=== PATIENT | female | born 1995 | race Caucasian/White ===

== ENCOUNTER 2016-10-30 14:48 | Emergency (ER) | payer OTHER ==
[2016-10-30 15:10] VITALS: BP 132/71
--- NOTE | 2016-10-30 16:10 | UC ---
Upper Extremity HPI - HPI Summary HPI Summary: The patient comes in today for: 1. Right arm pain: Onset: 3 hours ago. Palliative/provocative: Ice and ibuprofen make the pain better. Initially, she had aching with doing circular cleaning movements. Quality: ache Region: Posterior upper arm. Severity:3/10 Time: Constant. Associated symptoms: Event: While at work she was stepping off a 3-step, step ladder and she missed the bottom step. When she fell, she put her right arm behind her and she caught the bed behind her. After this, her arm got "really sore and stiff. " She put ice on the arm and also took ibuprofen (600 mg) at about 2 hours ago. Initially, the pain was a 6/10 and now, it is a 3/10. She complains of internal bruising. She is able to move and stretch the arm. She thinks that she hit the back of her right upper arm against a bed post. Numbness or weakness or heaviness: None. She comes in to be seen because her work told her to do so. She states that she tolerates ibuprofen with no problems. * - History of Current Complaint Chief Complaint: UCUpperExtremity Stated Complaint: ARM INJURY Time Seen by Provider: 10/30/16 16:01 Hx Obtained From: Patient Hx Last Menstrual Period: 09/29/16 ?: No - Allergies/Home Medications Allergies/Adverse Reactions: Allergies Allergy/AdvReac Type Severity Reaction Status Date / Time Ketorolac Tromethamine Allergy Intermediate Hives Verified 10/30/16 15:10 [From Toradol] Home Medications: Home Medications Norgestimate-Eth Estradiol(NF) [Ortho Tri-Cyclen (NF)] 1 tab PO DAILY 10/30/16 [ History Confirmed 10/30/16] PMH/Surg Hx/FS Hx/Imm Hx Previously Healthy: No - Family planning/BCP Endocrine History Of: Denies: Diabetes, Thyroid Disease, Hyperthyroidism, Hypothyroidism, Dyslipidemia Cardiovascular History Of: Denies: Cardiac Disorders, Hypertension, Pacemaker/ICD, Myocardial Infarction , Congestive Heart Failure, Atrial Fibrillation, Deep Vein Thrombosis, Bleeding Disorders Respiratory History Of: Reports: Asthma Denies: COPD, Bronchitis, Pneumonia, Pulmonary Embolism GI/ History Of: Denies: Gastroesophageal Reflux, Ulcer, Gastrointestinal Bleed, Gall Bladder Disease, Kidney Stones, Diverticulitis, Renal Disease, Urosepsis Neurological History Of: Denies: TIA, CVA, Dementia, Seizures, Migraine Psychological History Of: Denies: Anxiety, Depression, Bipolar Disorder, Schizophrenia, Post Traumatic Stress Disorder Cancer History Of: Denies: Lung Cancer, Colorectal Cancer, Breast Cancer, Prostate Cancer, Cervical Cancer Other History Of: Negative For: HIV, Hepatitis B, Hepatitis C, Anticoagulant Therapy - Surgical History Surgical History: Yes Surgery Procedure, Year, and Place: Appendectomy 11/25, choleycycectomy 2013 - Family History Known Family History: Positive: Cardiac Disease - grandfather, Other - grandma breast [place] Negative: Hypertension, Diabetes - Social History Occupation: Employed Full-time Alcohol Use: Rare Substance Use Type: None Smoking Status (MU): Current Every Day Smoker Type: Cigarettes Amount Used/How Often: 1/2 ppd Length of Time of Smoking/Using Tobacco: 2 YEARS Have You Smoked in the Last Year: Yes Household Exposure Type: Cigarettes - Immunization History Most Recent Influenza Vaccination: current Most Recent Tetanus Shot: 07/31/15 Most Recent Pneumonia Vaccination: not indicated Review of Systems Constitutional: Negative Skin: Rash Eyes: Negative ENT: Negative Respiratory: Negative Cardiovascular: Negative Gastrointestinal: Negative Genitourinary: Negative All Other Systems Reviewed And Are Negative: Yes Physical Exam Triage Information Reviewed: Yes Appearance: Well-Appearing, No Pain Distress, Well-Nourished Vital Signs: Initial Vital Signs Temp 97.7 F 10/30/16 15:07 Pulse 70 10/30/16 15:07 Resp 16 10/30/16 15:07 BP 132/71 10/30/16 15:07 Pulse Ox 100 10/30/16 15:07 Vital Signs Reviewed: Yes Eyes: Positive: Conjunctiva Clear. Negative: Discharge ENT: Positive: Hearing grossly normal. Negative: Pharyngeal erythema, Nasal congestion, Nasal drainage, TM bulging, TM dull, TM red, Tonsillar swelling, Tonsillar exudate Dental: Negative: Gross Decay/Caries @, Dental Fracture @ Neck: Positive: Supple, Nontender, No Lymphadenopathy. Negative: Nuchal Rigidity Respiratory: Positive: Lungs clear, No respiratory distress, No accessory muscle use. Negative: Rhonchi, Wheezing Cardiovascular: Positive: RRR, No Murmur Abdomen Description: Positive: Nontender, No Organomegaly, Soft. Negative: Distended, Guarding Musculoskeletal: Positive: Strength Intact, ROM Intact, No Edema, Other: - She has full range of motion of her arms (bilateral-lateral abduction and bilateral forward abduction), rotator cuff testing (internal and external rotation) normal. No edema or tenderness of the arm except at the ecchymotic area.. Negative: Strength Limited @ Neurological: Positive: Alert, Muscle Tone Normal Psychological: Positive: Age Appropriate Behavior, Consolable Skin: Positive: Other - She has a small ecchymotic lesion of her posterior right arm. It measures about 2 cm x 0.5 cm.. Negative: rashes, breakdown Upper Extremity Course/Dx - Course Course Of Treatment: Patient told of her diagnosis (contusion of the right arm) and her treatment options. All questions were answered. - Differential Dx/Diagnosis Provider Diagnoses: Right upper arm contusion Discharge - Discharge Plan Condition: Stable Disposition: HOME Patient Education Materials: Contusion in Adults (ED) Forms: *Work Release Referrals: Jus Wright MD [Primary Care Provider] - If Needed (Please see your primary care provider as he or she has previously recommended. If you have any problems and can't get in timely, you can come back to see us.)
== END 2016-10-30 16:42 | disposition home or self-care (01) ==
LOC: UCEAST 14:48
DX: S40.021A Contusion of right upper arm, initial encounter (principal); W11.XXXA Fall on and from ladder, initial encounter; Y93.9 Activity, unspecified; Y99.9 Unspecified external cause status
CPT/HCPCS: 99212; G0463

== ENCOUNTER 2017-05-04 11:03 | Emergency (ER) | payer OTHER ==
[2017-05-04] MEDS ORDERED: Albuterol HFA INHALER* 8 gm MDI INH ONE (12:29)
--- NOTE | 2017-05-04 12:35 | UC ---
Headache HPI - HPI Summary HPI Summary: 22 yo female with BOWLING on and off x 3 months they started after she bumper her head on a shower faucet no loc BOWLING are located in the occiput can last hours to days no n/v/d currently has a mild BOWLING but has had severe dizziness today difficulty walking due to disequilibrium no CP or SOB she has a hx of asthma 3 day hx of cough using rescue inhaler currently wheezing - History Of Current Complaint Chief Complaint: UCHeadache Stated Complaint: HEADACHE, DIZZINESS Time Seen by Provider: 05/04/17 11:51 Hx Obtained From: Patient Hx Last Menstrual Period: 04/17/17 Onset/Duration: Sudden Onset, Lasting Weeks - 3 mos Onset Of Symptoms: Sudden Currently Pain Is: Current Pain Scale(0-10)= - 3 Pain Intensity: 3 Pain Scale Used: 0-10 Numeric Timing: Intermittent, Lasting: - hours to days and occurring about 1x week Character: Throbbing, Pressure Location of Headache: Occipital Aggravating Factor(s): Nothing Allevating Factor(s): Nothing Associated Signs And Symptoms: Positive: Dizziness - TODAY only, Visual Changes - during the HAs her vision is blurry Related History: Recent Trauma: - hit back of head on faucet in shower about 3 mos ago Headaches started then - Allergies/Home Medications Allergies/Adverse Reactions: Allergies Allergy/AdvReac Type Severity Reaction Status Date / Time Ketorolac Tromethamine Allergy Intermediate Hives Verified 10/30/16 15:10 [From Toradol] PMH/Surg Hx/FS Hx/Imm Hx Previously Healthy: Yes Respiratory History: Asthma, Bronchitis Other History Of: Negative For: HIV, Hepatitis B, Hepatitis C, Anticoagulant Therapy - Surgical History Surgical History: Yes Surgery Procedure, Year, and Place: Appendectomy 11/25, choleycycectomy 2013 - Family History Known Family History: Positive: None, Cardiac Disease - grandfather, Other - grandma breast [place] Negative: Hypertension, Diabetes - Social History Alcohol Use: Rare Substance Use Type: None Smoking Status (MU): Current Every Day Smoker Type: Cigarettes Amount Used/How Often: 1/2 ppd Length of Time of Smoking/Using Tobacco: 2 YEARS Have You Smoked in the Last Year: Yes Household Exposure Type: Cigarettes - Immunization History Most Recent Influenza Vaccination: current Most Recent Tetanus Shot: 07/31/15 Most Recent Pneumonia Vaccination: not indicated Review of Systems Constitutional: Negative Skin: Negative Eyes: Negative ENT: Negative Respiratory: Cough, Other - wheezing Cardiovascular: Negative Gastrointestinal: Negative Genitourinary: Negative Motor: Negative Neurovascular: Negative Musculoskeletal: Negative Neurological: Headache Psychological: Negative Is Patient Immunocompromised?: No All Other Systems Reviewed And Are Negative: Yes Physical Exam Triage Information Reviewed: Yes Appearance: Well-Appearing, No Pain Distress, Well-Nourished Vital Signs: Initial Vital Signs Temp 100.0 F 05/04/17 11:12 Pulse 75 05/04/17 11:12 Resp 18 05/04/17 11:12 BP 137/70 05/04/17 11:12 Pulse Ox 98 05/04/17 11:12 Vital Signs Reviewed: Yes Eyes: Positive: Conjunctiva Clear, Other: - eomi/perrl/fundi benign ENT: Positive: Hearing grossly normal, TMs normal, Uvula midline. Negative: Nasal congestion, Nasal drainage, Tonsillar swelling, Tonsillar exudate, Trismus , Muffled voice, Hoarse voice, Dental tenderness, Sinus tenderness Dental Exam: Normal Neck: Positive: Supple, Nontender, No Lymphadenopathy Respiratory: Positive: No respiratory distress, No accessory muscle use, Wheezing Cardiovascular: Positive: RRR, No Murmur. Negative: Tachycardia, Bradycardia Musculoskeletal: Positive: ROM Intact, No Edema Neurological: Positive: Alert, Other: - cn 2-12 intact, strenght 5/5, dtrs symmetrical, good finger nose, Psychological Exam: Normal Skin Exam: Normal Diagnostics - Radiology No standard instances Xray Interpretation: No Acute Changes Radiology Interpretation Completed By: Radiologist Re-Evaluation - Re-Evaluation First Eval Re-Evaluation Time: 13:20 Change: Improved - CT had been down for repairs for about an hour/in that time her dizziness had improved Second Eval Re-Evaluation Time: 14:00 Change: Improved - dizziness gone, feels normal ambulating. wheeze with forced expiration Headache Course/Dx - Differential Dx/Diagnosis Provider Diagnoses: headache of uncertain cause. dizziness nonpecific. acute bronchitis with bronchospasm Discharge - Discharge Plan Condition: Stable Disposition: HOME Prescriptions: Amoxicillin PO (*) [Amoxicillin 875 MG (*)] 875 mg PO BID #14 tab Prednisone [Deltasone] 40 mg PO DAILY #10 tab Patient Education Materials: Acute Bronchitis (ED), Acute Headache (ED) Forms: *Work Release Referrals: Sara Perdomo MD [Medical Doctor] - 2 Weeks Additional Instructions: I suggest you see a neurologist for evaluation of your post traumatic headache recheck if bronchitis symptoms not resolved in 4-5 days use inhaler as directed
[2017-05-04 13:20] VITALS: BP 141/72
--- NOTE | 2017-05-04 13:39 | RAD ---
HISTORY: Occipital headache, remote trauma, dizziness COMPARISONS: None TECHNIQUE: Multiple contiguous axial CT scans were obtained of the head without intravenous contrast. FINDINGS: HEMORRHAGE/INFARCT: There is no hemorrhage or acute infarct. MASSES/SHIFT: There is no mass or shift. EXTRA-AXIAL SPACES: There are no extra-axial fluid collections. SULCI AND VENTRICLES: The sulci and ventricles are normal in size and position for the patient's stated age. CEREBRUM: There are no focal parenchymal abnormalities. BRAINSTEM: There are no focal parenchymal abnormalities. CEREBELLUM: There are no focal parenchymal abnormalities. VESSELS: The vessels are grossly normal. PARANASAL SINUSES: The paranasal sinuses are clear. ORBITS: The orbits are unremarkable. BONES AND SOFT TISSUE: No bone or soft tissue abnormalities are noted. OTHER: None IMPRESSION: NO ACUTE INTRACRANIAL PATHOLOGY.
== END 2017-05-04 14:13 | disposition home or self-care (01) ==
LOC: UCEAST 11:03
DX: R51 Headache (principal); R42 Dizziness and giddiness; J20.9 Acute bronchitis, unspecified; J45.909 Unspecified asthma, uncomplicated; Z72.0 Tobacco use
CPT/HCPCS: 70450; 99213; A9270-GY; G0463

== ENCOUNTER 2017-08-11 08:31 | Emergency (ER) | payer OTHER ==
[2017-08-11 08:45] VITALS: BP 125/80
--- NOTE | 2017-08-11 09:26 | RAD ---
HISTORY: Right hand trauma, pain COMPARISONS: September 06, 2014 VIEWS: 4, Frontal, lateral, and oblique views of the right hand FINDINGS: BONE DENSITY: Normal. BONES: There is no displaced fracture. JOINTS: There is no arthropathy. ALIGNMENT: There is no dislocation. SOFT TISSUES: Unremarkable. OTHER FINDINGS: None. IMPRESSION: NO ACUTE OSSEOUS INJURY. IF SYMPTOMS PERSIST, RECOMMEND REPEAT IMAGING.
--- NOTE | 2017-08-11 09:46 | UC ---
Hand/Wrist HPI - HPI Summary HPI Summary: RIGHT HAND SLAMMED IN A HOUSE DOOR YESTERDAY. HERE WITH PAIN AND SWELLING TO RIGHT 2ND FINGER AND RIGHT HAND. - History Of Current Complaint Stated Complaint: HAND INJURY Time Seen by Provider: 08/11/17 08:43 Hx Obtained From: Patient Hx Last Menstrual Period: 07/10/17 Onset/Duration: Sudden Onset, Lasting Days - 1 DAY, Still Present Severity Initially: Moderate Severity Currently: Moderate Pain Intensity: 6 Pain Scale Used: 0-10 Numeric Character Of Pain: Sharp Aggravating Factor(s): Movement Alleviating Factor(s): Rest Associated Signs And Symptoms: Positive: Swelling Related History: Dominant Hand Right - Allergies/Home Medications Allergies/Adverse Reactions: Allergies Allergy/AdvReac Type Severity Reaction Status Date / Time ketorolac [From Toradol] Allergy Intermediate Hives Verified 08/11/17 08:37 Home Medications: Home Medications Acetaminophen [Tylophen] 2 tab PO ONCE PRN 08/11/17 [History Confirmed 08/11/17] Budesonide/Formote 80/4.5(NF) [Symbicort 80/4.5 (NF)] 2 puff INH BID 08/11/17 [ History Confirmed 08/11/17] PMH/Surg Hx/FS Hx/Imm Hx Respiratory History: Asthma Other History Of: Negative For: HIV, Hepatitis B, Hepatitis C, Anticoagulant Therapy - Surgical History Surgical History: Yes Surgery Procedure, Year, and Place: Appendectomy 11/25, choleycycectomy 2013 - Family History Known Family History: Positive: Cardiac Disease - grandfather, Other - grandma breast [place] Negative: Hypertension, Diabetes - Social History Alcohol Use: Rare Substance Use Type: None Smoking Status (MU): Heavy Every Day Tobacco Smoker Type: Cigarettes Amount Used/How Often: 1 pack q 3 days Length of Time of Smoking/Using Tobacco: 2 YEARS Have You Smoked in the Last Year: Yes Household Exposure Type: Cigarettes - Immunization History Most Recent Influenza Vaccination: current Most Recent Tetanus Shot: 07/31/15 Most Recent Pneumonia Vaccination: not indicated Review of Systems Constitutional: Negative Skin: Negative Respiratory: Negative Cardiovascular: Negative Gastrointestinal: Negative Musculoskeletal: Arthralgia, Decreased ROM, Edema All Other Systems Reviewed And Are Negative: Yes Physical Exam Triage Information Reviewed: Yes Appearance: Well-Appearing, No Pain Distress, Well-Nourished Vital Signs: Initial Vital Signs Temp 99.0 F 08/11/17 08:40 Pulse 95 08/11/17 08:40 Resp 18 08/11/17 08:40 BP 125/80 08/11/17 08:40 Pulse Ox 100 08/11/17 08:40 Vital Signs Reviewed: Yes Eyes: Positive: Conjunctiva Clear ENT: Positive: Hearing grossly normal Neck: Positive: Supple Respiratory: Positive: No respiratory distress, No accessory muscle use Cardiovascular: Positive: Pulses Normal Abdomen Description: Positive: Soft Musculoskeletal: Positive: ROM Limited @ - RIGHT 2ND FINGER, Edema @ - RIGHT HAND OVERLYING 2ND METACARPAL AND, Other: - TTP RIGHT 2ND FINGER, MCP AND METACARPAL Neurological: Positive: Alert Psychological: Positive: Age Appropriate Behavior Skin: Negative: rashes Diagnostics - Radiology RIGHT HAND XRAY Xray Interpretation: No Acute Changes Radiology Interpretation Completed By: Radiologist Hand/Wrist Course/Dx - Differential Dx/Diagnosis Provider Diagnoses: RIGHT HAND CONTUSION Discharge - Discharge Plan Condition: Stable Disposition: HOME Patient Education Materials: Contusion in Adults (ED) Forms: *Work Release Referrals: Jus Wright MD [Primary Care Provider] - If Needed Cheri Padron MD [Medical Doctor] - If Needed Additional Instructions: XRAY TODAY NEGATIVE FOR FRACTURE OR DISLOCATION. REST, ICE, COMPRESS, ELEVATE. OTC MEDS NEEDED FOR DISCOMFORT. CONTUSION: Your injury has resulted in a contusion -- a crushing of the deep tissues. No injury to important structures was detected during the physician's exam. Contusions vary in the amount of pain they cause, and in the length of time required for healing. Typically, the area will become bruised, and will remain painful to touch for two or three weeks. However, most patients are back to working and playing within a few days. After the initial period of rest and cold-packs, your symptoms (together with the doctor's recommendations) will determine how rapidly you can get back to full activity. Usually this means "do what feels okay, but don't do things that hurt." If re-examination was recommended, it's important to follow up as instructed. Call the doctor or return any time if pain increases, if swelling becomes severe, if you develop numbness or weakness in an injured extremity, or if any other alarming symptoms occur.
== END 2017-08-11 09:50 | disposition home or self-care (01) ==
LOC: UCEAST 08:31
DX: S60.221A Contusion of right hand, initial encounter (principal); W23.0XXA Caught, crushed, jammed, or pinched between moving objects, initial encounter; Y93.9 Activity, unspecified; Y92.009 Unspecified place in unspecified non-institutional (private) residence as the place of occurrence of the external cause; Z32.02 Encounter for pregnancy test, result negative; J45.909 Unspecified asthma, uncomplicated; Z88.5 Allergy status to narcotic agent; F17.210 Nicotine dependence, cigarettes, uncomplicated
CPT/HCPCS: 84702; 99212; G0463

== ENCOUNTER 2018-02-09 09:23 | Emergency (ER) | payer OTHER ==
[2018-02-09 10:02] LABS: ABS Basophils 0 10^3/ul (0-0.2); ABS Eosinophils 0 10^3/ul (0-0.6); ABS Lymphocytes 0.8 10^3/ul (1.0-4.8); ABS Monocytes 0.8 10^3/ul (0-0.8); ABS Neutrophils 15.6 10^3/ul (1.5-7.7); ABS Nucleated RBC 0 10^3/ul; Eosinophil % 0 % (0-6); Hematocrit 39 % (35-47); Lymphocyte % 4.5 % (25-47); Mean Corpuscular HGB Conc 34 g/dl (31-36); Mean Corpuscular Hemoglobin 30 pg (27-31); Mean Corpuscular Volume 89 fL (80-97); Mean Platelet Volume 8.1 um3 (7.4-10.4); Nucleated Red Blood Cells % 0; Platelet Count 261 10^3/ul (150-450); Red Blood Count 4.34 10^6/ul (4.00-5.40); Red Cell Distribution Width 13 % (10.5-15); White Blood Count 17.2 10^3/ul (3.5-10.8)
[2018-02-09] MEDS ORDERED: NS 0.9% 1000 ML* 1,000 ML IV ONE (10:03)
[2018-02-09] MEDS ORDERED: Ondansetron INJ* 2 MG/ML VIAL IV ONE (10:03)
[2018-02-09] MEDS ORDERED: Morphine INJ* 2 MG/ML 1 ML SYRINGE (TWO MG - NEW SYRINGE VERSION) IV ONE (10:03)
[2018-02-09 10:10] LABS: Urine Appearance Clear; Urine Blood 1+ (Negative); Urine Color Yellow; Urine Ketones 1+ (Negative); Urine Protein Negative (Negative); Urine Red Blood Cell 1+(3-5/hpf) (Absent); Urine Specific Gravity 1.013 (1.010-1.030); Urine Urobilinogen Negative (Negative); Urine White Blood Cell Trace(0-5/hpf) (Absent)
--- NOTE | 2018-02-09 10:14 | ED ---
Abdominal Pain/Female - HPI Summary HPI Summary: Patient presents with diffuse abdominal pain starting last evening. She reports she was waiting to eat dinner when she developed diffuse upper abdominal pain across the right and left just under her ribs. She reports this advanced down to her navel area but again across to the right and left. She reports this is colicky and sharp. Pain is a 5 out of 10 at its best and jumps up to an 8-9 out of 10 at its worse. She reports waves of pain were happening every 15 minutes this morning. She had nausea with vomiting one time last night and has had about 6 bouts of watery diarrhea. She denies clark fever however she reports feeling flushed with nausea and vomiting and has some chills. She also admits to some mild dysuria mostly external vaginal burning with urination a couple of times. Denies urinary frequency, urgency, flank pain as well as vaginal irritation or discharge. She does admit to recent rough sex on Thursday that resulted in a couple of hours of postcoital bleeding. She's not had any pain or bleeding since. She also has a history of PCOS treated with oral control. No known history of ovarian torsion but has had pain in the past with cysts being poorly controlled. She's also had a cholecystectomy and appendectomy. She reports her pain today feels similar to her cholecystitis although admits that pain was more dull and constant. She denies headache, chest pain, shortness of breath, skin changes, joint aches. No change in food but she does report eating at a luncheon yesterday at work hot dog, potato chips, juice and fruit. She reports everything was cooked appropriately and there was no mayonnaise or signs of soured food. She denies any recent sick contacts. - History of Current Complaint Chief Complaint: David Stated Complaint: ABD PAIN Time Seen by Provider: 02/09/18 09:31 Hx Obtained From: Patient Hx Last Menstrual Period: 07/10/17 Pain Intensity: 7 Allergies/Adverse Reactions: Allergies Allergy/AdvReac Type Severity Reaction Status Date / Time ketorolac [From Toradol] Allergy Intermediate Hives Verified 02/09/18 09:33 PMH/Surg Hx/FS Hx/Imm Hx Previously Healthy: Yes Endocrine/Hematology History: Denies: Hx Anticoagulant Therapy, Hx Diabetes, Hx Thyroid Disease Cardiovascular History: Denies: Hx Congestive Heart Failure, Hx Deep Vein Thrombosis, Hx Hypertension , Hx Myocardial Infarction, Hx Pacemaker/ICD Respiratory History: Reports: Hx Asthma Denies: Hx Chronic Obstructive Pulmonary Disease (COPD), Hx Lung Cancer, Hx Pneumonia, Hx Pulmonary Embolism GI History: Reports: Hx Gall Bladder Disease - s/p cholecystectomy Denies: Hx Cirrhosis, Hx Crohn's Disease, Hx Diverticulosis, Hx Gastrointestinal Bleed, Hx Irritable Bowel, Hx Obstructive Bowel, Hx Ulcer, Hx Urosepsis History: Reports: Other Problems/Disorders - PCOS Denies: Hx Kidney Stones, Hx Renal Disease Neurological History: Denies: Hx Dementia, Hx Migraine, Hx Seizures, Hx Transient Ischemic Attacks (TIA) Psychiatric History: Denies: Hx Anxiety, Hx Depression, Hx Schizophrenia, Hx Bipolar Disorder - Cancer History Cancer Type, Location and Year: none - Surgical History Surgery Procedure, Year, and Place: Appendectomy 11/25, choleycycectomy 2013 Infectious Disease History: No Infectious Disease History: Denies: Hx Clostridium Difficile, Hx Hepatitis, Hx Human Immunodeficiency Virus (HIV), Hx of Known/Suspected MRSA, Hx Shingles, Hx Tuberculosis, Hx Known/ Suspected VRE, Hx Known/Suspected VRSA, History Other Infectious Disease, Traveled Outside the [place] in Last 30 Days - Family History Known Family History: Positive: Cardiac Disease - grandfather, Other - grandma breast CA Negative: Hypertension, Diabetes - Social History Occupation: Employed Full-time - Cleaning Lives: With Family Alcohol Use: Occasionally Hx Substance Use: No Substance Use Type: Reports: None Hx Tobacco Use: Yes Smoking Status (MU): Current Every Day Smoker Type: Cigarettes Amount Used/How Often: 1 pack q 3 days Length of Time of Smoking/Using Tobacco: 2 YEARS Have You Smoked in the Last Year: Yes Review of Systems Constitutional: Other - as in HPI Eyes: Negative ENT: Negative Cardiovascular: Negative Negative: Chest Pain Respiratory: Negative Negative: Shortness Of Breath Positive: Abdominal Pain, Diarrhea, Nausea. Negative: Vomiting Positive: see HPI Musculoskeletal: Negative Skin: Negative Neurological: Negative Psychological: Normal All Other Systems Reviewed And Are Negative: Yes Physical Exam Triage Information Reviewed: Yes Vital Signs On Initial Exam: Initial Vitals Temp Pulse Resp BP Pulse Ox 97.2 F 101 18 124/61 99 02/09/18 09:29 02/09/18 09:29 02/09/18 09:29 02/09/18 09:29 02/09/18 09:29 Vital Signs Reviewed: Yes Appearance: Positive: Well-Appearing, Well-Nourished, Pain Distress - moderate Skin: Positive: Warm, Skin Color Reflects Adequate Perfusion, Dry Head/Face: Positive: Normal Head/Face Inspection Eyes: Positive: Normal, EOMI, Conjunctiva Clear - anicteric sclera ENT: Positive: Hearing grossly normal, Pharynx normal - mucosa moist Respiratory/Lung Sounds: Positive: Clear to Auscultation, Breath Sounds Present. Negative: Rales, Rhonchi, Wheezes Cardiovascular: Positive: Normal, RRR, S1, S2. Negative: Murmur, Rub Abdomen Description: Positive: Soft, Other: - generalized ab TTP - mild - no rebounding Bowel Sounds: Positive: Present Pelvic Exam: Positive: External Exam Normal, No Cerv. Motion Tender, No Masses, Tender Adnexa - Lt - mild. Negative: Active Bleeding, Discharge, Lesions Musculoskeletal: Positive: Normal, Strength/ROM Intact Neurological: Positive: Normal, Sensory/Motor Intact, Alert, Oriented to Person Place, Time, CN Intact II-III Psychiatric: Positive: Anxious - polite and cooperative - consolable Diagnostics - Vital Signs Vital Signs Temp Pulse Resp BP Pulse Ox 02/09/18 10:09 17 02/09/18 09:29 97.2 F 101 18 124/61 99 - Laboratory Lab Results: Lab Results 02/09/18 02/09/18 Range/Units 09:49 09:55 WBC 17.2 H (3.5-10.8) 10^3/ul RBC 4.34 (4.00-5.40) 10^6/ul Hgb 13.0 (12.0-16.0) g/dl Hct 39 (35-47) % MCV 89 (80-97) fL MCH 30 (27-31) pg MCHC 34 (31-36) g/dl RDW 13 (10.5-15) % Plt Count 261 (150-450) 10^3/ul MPV 8.1 (7.4-10.4) um3 Neut % (Auto) 90.7 H (38-83) % Lymph % (Auto) 4.5 L (25-47) % Todd % (Auto) 4.6 (0-7) % Eos % (Auto) 0 (0-6) % Baso % (Auto) 0.2 (0-2) % Absolute Neuts (auto) 15.6 H (1.5-7.7) 10^3/ul Absolute Lymphs (auto) 0.8 L (1.0-4.8) 10^3/ul Absolute Monos (auto) 0.8 (0-0.8) 10^3/ul Absolute Eos (auto) 0 (0-0.6) 10^3/ul Absolute Basos (auto) 0 (0-0.2) 10^3/ul Absolute Nucleated RBC 0 10^3/ul Nucleated RBC % 0 Urine Color Yellow Urine Appearance Clear Urine pH 5.0 (5-9) Ur Specific [place] 1.013 (1.010-1.030) Urine Protein Negative (Negative) Urine Ketones 1+ A (Negative) Urine Blood 1+ A (Negative) Urine Nitrate Negative (Negative) Urine Bilirubin Negative (Negative) Urine Urobilinogen Negative (Negative) Ur Leukocyte Esterase Trace A (Negative) Urine WBC (Auto) Trace(0-5/hpf) (Absent) Urine RBC (Auto) 1+(3-5/hpf) A (Absent) Ur Squamous Epith Cells Present A (Absent) Urine Bacteria Absent (Absent) Urine Glucose Negative (Negative) Urine Ascorbic Acid * A (Negative) Result Diagrams: 02/09/18 09:55 02/09/18 09:55 Lab Statement: Any lab studies that have been ordered have been reviewed, and results considered in the medical decision making process. Re-Evaluation - Re-Evaluation First Eval Change: Improved - nausea resolved, pain improved and pt would like to try drinking - tolerated large ice water well w/o pain, nausea or vomiting - ready to go home Abdominal Pain Fem Course/Dx - Course Course Of Treatment: Patient presents with onset of abdominal pain, nausea and diarrhea since yesterday. She admits to eating at a luncheon at work yesterday prior to sx starting. Her CT reveals colitis. She denies hematochezia. Nausea and pain improved while here - the patient was able to tolerate by mouth without pain or difficulty. She was discharged with colitis and we discussed the possibility of this being a food borne illness therefore antibiotics were not prescribed in the event that they may make her diarrhea worse - also advised avoiding immodium. Diff dx: crohn's, UC although low liklihood w/ abrupt onset. She was advised to drink clears to stay hydrated over the next 24-48 hours and advance her diet as tolerated only (BRAT). Review danger signs and symptoms of when to return to the emergency department. Also provided patient with stool sample kit and advised contacting her PCP as soon as she is able to provide a sample so they can order tests. Although she has an elevated WBC, she has not had a fever since onset and has not had anti- pyretics. Encouraged she take acetaminophen extra strength for pain if this returns along w/ heat pack. - Diagnoses Provider Diagnoses: Colitis Discharge - Sign-Out/Discharge Documenting (check all that apply): Patient Departure - Discharge Plan Condition: Stable Disposition: HOME Patient Education Materials: Colitis (ED) Forms: *Work Release Referrals: Jus Wright MD [Primary Care Provider] - Additional Instructions: Stay hydrated with water, juice, gingerale, etc - may advance diet as tolerated (suggest applesauce, banana, toast, rice, etc) Avoid stimulants (ie. caffeine, nicotine, alcohol, chocolate, etc) If you are able to provide a stool sample for your PCP, call and notify them so they may order tests to better identify cause of your colitis *If you develop acute fever, worsening of pain, intractable diarrhea/vomiting, inability to stay hydrated, return to the ED - Billing Disposition and Condition Condition: STABLE Disposition: Home
[2018-02-09 10:21] LABS: EGFR Non-African American 109.1 (>60)
--- OUTSIDE RECORDS SUMMARY | 2018-02-09 10:21 | XMS REPORT ---
:1995 External Reference #:[id number] Author Organization [facility] Address [address] [place] [address] Phone [phone] Care Team Providers Name Role Phone Jus Wright M.D. Primary Care Physician Unavailable Payers Type Date Identification Numbers Payment Provider Subscriber Commercial Policy Number: [id number] [employer] Ppo Anglerickey Wright PayID: [id number] [address] [place] [address] Medigap Part B Policy Number: [id number] Medicaid [place] Lazaro Morales PayID: [id number] [address] [place] [address] Medigap Part B Expires: Policy Number: [facility] Tony Rodriguez 2015 [id number] Kyle PayID: [id number] [address] [place] [address] Problems Date Description Provider Status Onset: 08/17/2015 Primigravida Jay Hylton CNM Resolved Resolved: 12/05/2015 Family History Date Family Member(s) Problem(s) Comments Father A&W Mother A&W Children 1 First Daughter A&W Siblings 1 First Brother A&W Paternal Grandfather A&W Paternal Grandmother Stroke Maternal Grandfather A&W Maternal Grandmother Breast Cancer Maternal Grandmother Vertigo Social History Type Date Description Comments Education Highest level completed, 12th grade Marital Status Single Lives With Boyfriend Lives With Daughter Pets None Occupation Housekeeping at [employer] Cigarette Use Current Cigarette Smoker 5-10 X8 years Cigarettes Daily ETOH Use Rarely consumes alcohol Smoking Patient is a current smoker, smokes every day Recreational Drug Use Denies Drug Use Daily Caffeine Consumes on average 1 soda per day Exercise Type/Frequency Exercises sporadically Seat Belt/Car Seat Always uses seat belt Currently Active Patient is currently sexually active Contraceptive Methods Current methods include oral contraceptives STD's No STD History Allergies, Adverse Reactions, Alerts Date Description Reaction Status Severity Comments 07/17/2015 Toradol active Medications Medication Date Status Form Strength Qnty SIG Indications Ordering Provider Una-Be 05/04/ Active Tablets 0.35mg 84tab 1 by mouth Pauline 2017 s every day Jump, ANP-C Albuterol / Active Nebulizer (2.5mg/3ML Unknown Sulfate 0000 ) 0.083% Symbicort / Active Aerosol 160-4.5mcg Unknown 0000 /Act Ortho 10/10/ Hx Tablets 0.18/0.215 168ta take 1 tab Erianna Tri-Cyclen () 2016 - /0.25 bs by mouth Christie 05/04/ mg-35 mcg every day CNM 2016 Metrogel-Vagina 10/06/ Hx Gel 0.75% 1TX 1 Pauline l 2016 - applicator Jump, 10/10/ every night ANP-C 2017 at bedtime x 5 days Flagyl 12/04/ Hx Tablets 500mg 14tab 1 by mouth Z39.2 Mahrie 2015 - s two times Hylton, 12/11/ per day x 7 CNM 2015 days Diflucan 12/04/ Hx Tablets 150mg 2tabs take 1 by Z39.2 Mahrie 2015 - mouth for Hylton, 12/11/ yeast. CNM 2015 repeat x 1 as needed Dicloxacillin 11/12/ Hx Capsules 500mg 40cap 1 tablet by Magaly Zane 2015 - s mouth every Bell, 11/25/ 6 hours CNM 2016 / Hx Unknown Vitamins - 2015 Tylenol / Hx Unknown 0000 - 2015 Immunizations CPT Code Status Date Vaccine Lot # [id number] Given 07/31/2015 Tetnus, Diptheria Toxoids And Acellular Pertussis, [id number] PT > 7Yrs Old Vital Signs Date Vital Result Comment 01/18/2018 BP Systolic 106 mmHg BP Diastolic 66 mmHg Height 64 inches 5'4" Weight 166.00 lb BMI (Body Mass Index) 28.5 kg/m2 Last Menstrual Period [id number] 1 Parity 1 05/04/2017 BP Systolic 120 mmHg BP Diastolic 80 mmHg Height 64 inches 5'4" Weight 164.00 lb BMI (Body Mass Index) 28.1 kg/m2 Last Menstrual Period [id number] 1 Parity 1 10/10/2016 BP Systolic 130 mmHg BP Diastolic 86 mmHg Height 64 inches 5'4" Weight 176.00 lb BMI (Body Mass Index) 30.2 kg/m2 1 Parity 1 10/02/2016 BP Systolic 128 mmHg BP Diastolic 76 mmHg Height 64 inches 5'4" Weight 176.00 lb BMI (Body Mass Index) 30.2 kg/m2 1 Parity 1 04/30/2016 BP Systolic 118 mmHg BP Diastolic 64 mmHg Height 64 inches 5'4" Weight 184.00 lb BMI (Body Mass Index) 31.6 kg/m2 Last Menstrual Period [id number] 1 Parity 1 02/11/2016 BP Systolic 124 mmHg BP Diastolic 66 mmHg Height 64 inches 5'4" Weight 186.00 lb BMI (Body Mass Index) 31.9 kg/m2 Last Menstrual Period 8999300 1 Parity 1 01/10/2016 BP Systolic 122 mmHg BP Diastolic 64 mmHg Height 64 inches 5'4" Weight 181.00 lb BMI (Body Mass Index) 31.1 kg/m2 Last Menstrual Period [id number] 1 Parity 1 12/05/2015 BP Systolic 122 mmHg BP Diastolic 76 mmHg Height 64 inches 5'4" Weight 175.00 lb BMI (Body Mass Index) 30.0 kg/m2 Last Menstrual Period 8062080 1 Parity 1 11/13/2015 BP Systolic 124 mmHg BP Diastolic 64 mmHg Body Temperature 98.3 F Height 64 inches 5'4" Weight 168.00 lb BMI (Body Mass Index) 28.8 kg/m2 Last Menstrual Period 1703199 1 Parity 1 07/17/2015 BP Systolic 124 mmHg BP Diastolic 66 mmHg Height 64 inches 5'4" Weight 156.00 lb BMI (Body Mass Index) 26.8 kg/m2 Last Menstrual Period 8224298 1 Parity 0 Results Test Date Test Result H/L Range Note Laboratory test 10/02/2016 Gardnerella/Yeast: SEE RESULT BELOW BV 1 finding Vaginal Dna Laboratory test 01/10/2016 Cytology SEE RESULT BELOW 2 finding Laboratory test 10/16/2015 Rupture of Membranes Negative 3 finding Laboratory test 10/02/2015 Rupture of Membranes Negative 4 finding Laboratory test 09/28/2015 Genital For GRP B SEE RESULT BELOW 5 finding Strep Only Urinalysis Profile 09/03/2015 Urine Color Yellow Urine Appearance Cloudy Urine Specific [place] 1.009 Low 1.010-1.030 Urine pH 7.0 5-9 Urine Urobilinogen Negative Negative Urine Ketones Negative Negative Urine Protein Negative Negative Urine Leukocytes Negative Negative Urine Blood Negative Negative Urine Nitrite Negative Negative Urine Bilirubin Negative Negative Urine Glucose Negative Negative Glucose Tolerance 3HR 07/25/2015 GTT 3HR Gestational (SEE NOTE) 6 Gestational Laboratory test finding 07/17/2015 Glucose 1 HR Post 139 mg/dL 70-160 Prandial CBC With No Diff 07/17/2015 White Blood Count 11.5 10^3/uL High 3.5-10.8 Red Blood Count 3.58 10^6/uL Low 4.0-5.4 Hemoglobin 11.2 g/dL Low 12.0-16.0 Hematocrit 33 % Low 35-47 Mean Corpuscular Volume 93 fL 80-97 Mean Corpuscular Hemoglobin 31 pg 27-31 Mean Corpuscular HGB Conc 34 g/dL 31-36 Red Cell Distribution Width 13 % 10.5-15 Platelet Count 245 10^3/uL 150-450 Mean Platelet Volume 8 um3 7.4-10.4 Urine Culture And Sensitivities 07/17/2015 Urine Culture SEE RESULT BELOW 7 1 SEE RESULT BELOW Name: LAZARO MORALES : [address]: Pauline Sanchez Acct: [id number] Unit: [id number] AGE: 21 Location: [facility] Re10/02/16 SEX: F Status: REG REF SPEC: [id number] REENA: 10/02/161055 SUBM DR: Pauline Sanchez REQ: [id number] RECD: 10/02/16 STATUS: COMP _ SOURCE: VAGINAL [facility]: ORDERED: Ariela,Yeast DNA, Trich DNA COMMENTS: [id number] Procedure Result Reported Site Gardnerella/Yeast: Vaginal DNA Final 10/03/16- 1046 ML Organism 1 POSITIVE GARDNERELLA Organism 2 Negative Alejandra The presence of G. vaginalis, although suggestive, is not diagnostic for bacterial vaginosis. Results should be interpreted in conjuction with other clinical and laboratory data available. Women with vaginal discharge should be evaluated for risk factors of cervicitis and pelvic inflammatory disease, toxic shock syndrome (S.aureus), and if present, evaluated for organisms not included in this assay such as N. gonorrhoeae, C. trachomatis, Mobiluncus, Mycoplasma and/or Prevotella. Mixed infections may occur. The performance of this test on patient specimens collected during or immediately after antimicrobial therapy is unknown. The presence or absence of Alejandra species, or G. vaginalis cannot be used as a test for therapeutic success or failure. Trichomonas: Vaginal DNA Probe Final 10/03/16- 1046 ML Organism 1 Negative Trichomonas CONTINUED ON NEXT PAGE * ML=Testing performed at Main Lab DEPARTMENT OF PATHOLOGY, [address] [place] [address] Weston Wetzel M.D. Director LILY # [id number] Patient: LAZARO MORALES [id number] (Continued) Specimen: [id number] Collected: 10/02/16-1054 Received: 10/02/16 (Continued) Procedure Result Reported Site Trichomonas: Vaginal DNA Probe Final (continued) 10/03/16- 1046 The presence or absence of T. vaginalis cannot be used as a test for therapeutic success or failure. * ML - MAIN LAB ([facility]) . END OF REPORT * ML=Testing performed at Main Lab DEPARTMENT OF PATHOLOGY, [address] [place] [address] Weston Wetzel M.D. Director [place] # [id number] 2 SEE RESULT BELOW Name: LAZARO MORALES : [address]: Jay Hylton CNM Acct: [id number] Unit: [id number] AGE: 21 Location: [facility] Re01/10/16 SEX: F Status: REG REF SPEC: [id number] REENA: 01/10/16-[address]: Jay Hylton CNM REQ: [id number] RECD: 01/10/16 STATUS: SOUT _ ORDERED: IMAGE ANALYSIS COMMENTS: [id number] FINAL DIAGNOSIS Negative for Intraepithelial lesion or Malignancy A. Ectocervical/Endocervical Specimen Adequacy: Satisfactory of evaluation Transformation zone component identified Patient Information: HPV: Thin Layer Pap Test w/reflex to high risk HPV RNA testing when ASCUS Actual Specimen Date: 01/10/16 Last Menstrual Date: 01/17/15 Spec Date if unknown: never ?: N Signed (signature on file) LOUISE Elizabeth(ASCP) 01/10 1539 This Pap test was evaluated with the assistance of the [employer]Prep Test Imaging System. Due to cytologic findings at the academic specialist microscope, comprehensive manual rescreening by a Research Development Manager may be required. The Pap Smear is a screening test designed to aid in the detection of premalignant and malignant conditions of the uterine cervix. It is not a diagnostic procedure and should not be used as the sole means of detecting cervical cancer. Both false- positive and false- negative reports do occur. Depending on your risk status, a Pap smear should be obtained and evaluated every 1-3 years. END OF REPORT * ML=Testing performed at Main Lab DEPARTMENT OF PATHOLOGY, [address] [place] [address] Weston Wetzel M.D. Director [facility] # [id number] 3 A NEGATIVE results indicates there is no evidence of membrane rupture. 4 A NEGATIVE results indicates there is no evidence of membrane rupture. 5 SEE RESULT BELOW Name: LAZARO MORALES : [address]: Lauren Bell [facility] Acct: [id number] Unit: [id number] AGE: 20 Location: [facility] Re09/28/15 SEX: F Status: REG REF SPEC: [id number] REENA: 09/28/15-[address]: Lauren Bell [facility] REQ: [id number] RECD: 10/01/15 STATUS: COMP _ SOURCE: WALLACE/KATIE/RE SPDESC: ORDERED: Grp B Strp Scrn QUERIES: Is Patient Penicillin Allergic? N Is patient penicillin allergic and/or sensitivities needed? N Provider Requisition # C77#[id number]_ Procedure Result Reported Site Group B Strep Culture Screen Final 10/03/15- 1016 ML Group B Strep Screen Positive Organism 1 STREP GROUP B Susceptibility testing of penicillins and other B-lactams approved by FDA for treatment of Streptococcus pyogenes (Group A Strep) and Streptococcus agalactiae (Group B Strep) is not necessary for clinical purposes and need not be done routinely, since as with vancomycin, resistant strains have not been recognized. (CLSI X270-E40;p.66) Positive isolates will be saved for one week. Please call the Microbiology Laboratory if further susceptibility testing is needed. * ML - MAIN LAB ([facility]) . END OF REPORT * ML=Testing performed at Main Lab DEPARTMENT OF PATHOLOGY, [address] [place] [address] Weston Wetzel M.D. Director [facility] # [id number] 6 GLU Fast 73 Col: 07/25/15 0750 GLU 1HR 152 Col: 07/25/15 0850 GLU 2HR 108 Col: 07/25/15 0950 GLU 3HR 82 Col: 07/25/15 1050 GLU Interp Col: 07/25/15 0750 GTT normal ranges for obstetrics per the [employer] (ACOG).Based on 100 gm glucose load: Fasting <95 mg/dl 1hr <180 mg/dl 2hr <155 mg/dl 3hr <140 mg/dl 7 SEE RESULT BELOW Name: LAZARO MORALES : [address]: Pauline Veras CNP Acct: [id number] Unit: [id number] AGE: 20 Location: [facility] Re07/17/15 SEX: F Status: REG REF SPEC: [id number] ERENA: 07/17/15-[address]: Pauline Veras CNP REQ: [id number] RECD: 07/17/15 STATUS: COMP _ SOURCE: URINE SPDESC: ORDERED: Urine Culture Procedure Result Reported Site Urine Culture Final 07/19/15- 08 ML No Growth (<1,000 CFU/mL) * ML - MAIN LAB ([facility]) . END OF REPORT * ML=Testing performed at Main Lab DEPARTMENT OF PATHOLOGY, [address] [place] [address] Weston Wetzel M.D. Director [facility] # [id number] Procedures Date CPT Code Description Status 10/10/2016 38430 Remove Intrauterine Device Completed 01/10/2016 92284 Insert Intrauterine Device Completed 10/29/2015 63591 Obstetric Care Routine Completed 10/16/2015 95585 Non-Stress Test Completed 10/02/2015 27369 Non-Stress Test Completed 09/28/2015 40444 Echography Uterus Limited Completed 09/03/2015 73869 Non-Stress Test Completed Encounters Type Date Location Provider CPT E/M Dx Office Visit 05/04/2017 10:40a [facility] BLANK Jolly 80405 Z01.419 Office Visit 10/10/2016 2:30p [place] [address] Z30.432 Z30.09 Office Visit 10/02/2016 10:20a [facility] BLANK Jolly 67156 N76.0 Office Visit 04/30/2016 1:00p [place] [address] Z01.419 Office Visit 02/11/2016 2:00p [place] [address] Z30.431 Office Visit 10/16/2015 1:27p Delivery Jay Hylton CNM 09050 O47.1 Office Visit 09/03/2015 9:55a Delivery Magaly Bell CNM 05695 O60.03 Plan of Care Future Appointment(s):02/24/2018 11:30 am - Ankit Bautista MD at [facility] - Jay Hylton CNMZ30.430 Encounter for insertion of intrauterine contraceptive deviceComments:IUD insertion uncomplicated, patient tolerated well.Pt given precautions to return if persistent pain or fever.She should check for strings monthly after menses. Contact us if ever unable to locate strings.Pt will return in about 4 wks for IUD check.All questions answered.Return for removal within 5 yrs.Z30.431 Encounter for routine checking of intrauterine contracep dev
[2018-02-09] MEDS ORDERED: Iohexol 300* (CONTRAST) 10 ML SDV IV ONE (11:46)
--- NOTE | 2018-02-09 12:11 | RAD ---
INDICATION: Left lower quadrant pain on pelvic exam. COMPARISON: Comparison is made with a CT of the abdomen and pelvis of the same date. TECHNIQUE: Multiple real-time transvaginal images of the pelvis were obtained. FINDINGS: The uterus is normal in size, shape and echogenicity. The uterus measured 7.4 x 3.5 x 4.4 cm. The endometrial echo measured 0.4 cm in thickness. There are small nabothian cysts. The right ovary measured 4.1 x 1.7 x 2.6 cm. The left ovary measured 2.8 x 1.4 x 3.5 cm. There is vascular flow within both ovaries. There is a small amount of free intraperitoneal fluid in the cul-de-sac and left adnexal region. IMPRESSION: 1. NO EVIDENCE FOR OVARIAN TORSION. 2. SMALL AMOUNT OF FREE INTRAPERITONEAL FLUID.
--- NOTE | 2018-02-09 12:27 | RAD ---
INDICATION: Abdominal pain with nausea, vomiting and diarrhea. COMPARISON: Comparison is made with a prior CT of the abdomen and pelvis from November 23, 2012. TECHNIQUE: A CT scan of the abdomen and pelvis was performed with intravenous and with oral contrast following intravenous injection of 96 ml of Omnipaque 300 nonionic contrast. Contiguous axial sections were obtained from the lung bases through the symphysis pubis. Images were reconstructed in the coronal and sagittal planes. FINDINGS: The lung bases are clear. No pleural effusion is present. The liver appears mildly enlarged and decreased in attenuation consistent with fatty infiltration. No significant focal abnormality is seen. The patient is status post cholecystectomy. The spleen and pancreas appear to be within normal limits. The kidneys and adrenal glands are normal in size. No hydronephrosis is seen. No significant focal renal abnormality is seen. The aorta is normal in caliber and demonstrates homogeneous contrast opacification. No significant enlarged retroperitoneal lymph nodes are seen. The stomach, small and large bowel appear nondistended. The patient is status post appendectomy. There is a surgical suture line present along the medial aspect of the cecum. There is circumferential thickening of the wall of the ascending and transverse colon most consistent with colitis. There is mild to moderate descending and sigmoid diverticulosis without evidence for diverticulitis. The uterus is anteverted and normal in size. There is a small amount of free intraperitoneal fluid in the dependent portion of the pelvis. No free intraperitoneal air is seen. No significant focal osseous abnormality is seen. IMPRESSION: 1. FINDINGS MOST CONSISTENT WITH COLITIS INVOLVING THE ASCENDING AND TRANSVERSE COLON. 2. STATUS POST APPENDECTOMY AND CHOLECYSTECTOMY. 3. MILD HEPATOMEGALY AND HEPATIC STEATOSIS.
[2018-02-09 13:12] VITALS: BP 129/77
--- NOTE | 2018-02-10 18:42 | ED ---
Progress - Progress Note Progress Note: Patient's vaginal cultures return negative for Alejandra but positive for Gardnerella. She also has a positive occult blood and positive by immunoassay. She was diagnosed with colitis and returned to the ED later that evening. She provided a stool sample at that time as she was provided with a kit at her first visit earlier in the day. This reveals salmonella which initial provider suspected. At her second visit, she was placed on Levaquin and Flagyl. The Flagyl will cover her bacterial vaginosis and she should continue. Called patient to see how she's feeling as antibiotic therapy is not usually recommended for salmonella poisoning since it was early onset and dx is typically self-limiting in young healthy individuals and anbx can create longer carriage. Unable to reach patient, left message to call. Re-Evaluation - Re-Evaluation First Eval Change: Improved - nausea resolved, pain improved and pt would like to try drinking - tolerated large ice water well w/o pain, nausea or vomiting - ready to go home Course/Dx - Course Course Of Treatment: Patient presents with onset of abdominal pain, nausea and diarrhea since yesterday. She admits to eating at a luncheon at work yesterday prior to sx starting. Her CT reveals colitis. She denies hematochezia. Nausea and pain improved while here - the patient was able to tolerate by mouth without pain or difficulty. She was discharged with colitis and we discussed the possibility of this being a food borne illness therefore antibiotics were not prescribed in the event that they may make her diarrhea worse - also advised avoiding immodium. Diff dx: crohn's, UC although low liklihood w/ abrupt onset. She was advised to drink clears to stay hydrated over the next 24-48 hours and advance her diet as tolerated only (BRAT). Review danger signs and symptoms of when to return to the emergency department. Also provided patient with stool sample kit and advised contacting her PCP as soon as she is able to provide a sample so they can order tests. Although she has an elevated WBC, she has not had a fever since onset and has not had anti- pyretics. Encouraged she take acetaminophen extra strength for pain if this returns along w/ heat pack. - Diagnoses Provider Diagnoses: Colitis Discharge - Sign-Out/Discharge Documenting (check all that apply): Post-Discharge Follow Up - Discharge Plan Condition: Stable Disposition: HOME Patient Education Materials: Colitis (ED) Forms: *Work Release Referrals: Jus Wright MD [Primary Care Provider] - Additional Instructions: Stay hydrated with water, juice, gingerale, etc - may advance diet as tolerated (suggest applesauce, banana, toast, rice, etc) Avoid stimulants (ie. caffeine, nicotine, alcohol, chocolate, etc) If you are able to provide a stool sample for your PCP, call and notify them so they may order tests to better identify cause of your colitis *If you develop acute fever, worsening of pain, intractable diarrhea/vomiting, inability to stay hydrated, return to the ED - Billing Disposition and Condition Condition: STABLE Disposition: Home
== END 2018-02-09 13:11 | disposition home or self-care (01) ==
LOC: ED 09:23
DX: K52.9 Noninfective gastroenteritis and colitis, unspecified (principal); F17.210 Nicotine dependence, cigarettes, uncomplicated
CPT/HCPCS: 36415; 74177; 76830; 80053; 81003; 81015; 83605; 83690; 83735; 84702; 85025; 86140; 87086; 87480; 87491; 87510; 87591; 87661; 96374; 96375; 99283; J2270; J2405; Q9967

== ENCOUNTER 2018-02-09 18:58 | Emergency (ER) | payer OTHER ==
--- NOTE | 2018-02-09 19:21 | ED ---
Abdominal Pain/Female - HPI Summary HPI Summary: This patient is a 23 year old F presenting to [facility] with a chief complaint of abdominal pain since 16:00 yesterday. The patient rates the pain 10/10 in severity. Patient reports nausea, diarrhea, and loss of appetite secondary to the pain. Patient denies fever. She was seen yesterday at [facility] and diagnosed with colitis. Patient was given morphine and Zofran. However, she reports that upon discharge at 13:00 today, she was not given any antibiotics or painkillers. - History of Current Complaint Chief Complaint: EDAbdPain Stated Complaint: ABD PAIN Time Seen by Provider: 02/09/18 19:16 Hx Obtained From: Patient Hx Last Menstrual Period: 07/10/17 Onset/Duration: Sudden Onset, Lasting Days - 16:00 yesterday, Still Present Timing: Constant Severity Initially: Severe Severity Currently: Severe Pain Intensity: 10 Pain Scale Used: 0-10 Numeric Location: Diffuse Associated Signs and Symptoms: Positive: Decreased Appetite - Secondary to pain , Nausea, Diarrhea Allergies/Adverse Reactions: Allergies Allergy/AdvReac Type Severity Reaction Status Date / Time ketorolac [From Toradol] Allergy Intermediate Hives Verified 02/09/18 09:33 PMH/Surg Hx/FS Hx/Imm Hx Endocrine/Hematology History: Denies: Hx Anticoagulant Therapy, Hx Diabetes, Hx Thyroid Disease Cardiovascular History: Denies: Hx Congestive Heart Failure, Hx Deep Vein Thrombosis, Hx Hypertension , Hx Myocardial Infarction, Hx Pacemaker/ICD Respiratory History: Reports: Hx Asthma Denies: Hx Chronic Obstructive Pulmonary Disease (COPD), Hx Lung Cancer, Hx Pneumonia, Hx Pulmonary Embolism GI History: Reports: Hx Gall Bladder Disease - s/p cholecystectomy Denies: Hx Cirrhosis, Hx Crohn's Disease, Hx Diverticulosis, Hx Gastrointestinal Bleed, Hx Irritable Bowel, Hx Obstructive Bowel, Hx Ulcer, Hx Urosepsis History: Reports: Other Problems/Disorders - PCOS Denies: Hx Kidney Stones, Hx Renal Disease Neurological History: Denies: Hx Dementia, Hx Migraine, Hx Seizures, Hx Transient Ischemic Attacks (TIA) Psychiatric History: Denies: Hx Anxiety, Hx Depression, Hx Schizophrenia, Hx Bipolar Disorder - Cancer History Cancer Type, Location and Year: none - Surgical History Surgery Procedure, Year, and Place: Appendectomy 11/25, choleycycectomy 2013 Infectious Disease History: No Infectious Disease History: Denies: Hx Clostridium Difficile, Hx Hepatitis, Hx Human Immunodeficiency Virus (HIV), Hx of Known/Suspected MRSA, Hx Shingles, Hx Tuberculosis, Hx Known/ Suspected VRE, Hx Known/Suspected VRSA, History Other Infectious Disease, Traveled Outside the [place] in Last 30 Days - Family History Known Family History: Positive: Cardiac Disease - grandfather, Other - grandma breast [place] Negative: Hypertension, Diabetes - Social History Alcohol Use: Occasionally Hx Substance Use: No Substance Use Type: Reports: None Hx Tobacco Use: Yes Smoking Status (MU): Current Every Day Smoker Type: Cigarettes Amount Used/How Often: 1 pack q 3 days Length of Time of Smoking/Using Tobacco: 2 YEARS Have You Smoked in the Last Year: Yes Review of Systems Negative: Fever Positive: Abdominal Pain, Diarrhea, Nausea, Other - Loss of appetite secondary to abdominal pain All Other Systems Reviewed And Are Negative: Yes Physical Exam - Summary Physical Exam Summary: VITAL SIGNS: Reviewed. GENERAL: Patient is a well-developed and nourished FEMALE who is lying comfortable in the stretcher. Patient is not in any acute respiratory distress. HEAD AND FACE: No signs of trauma. No ecchymosis, hematomas or skull depressions. No sinus tenderness. EYES: PERRLA, EOMI x 2, No injected conjunctiva, no nystagmus. EARS: Hearing grossly intact. Ear canals and tympanic membranes are within normal limits. MOUTH: Oropharynx within normal limits. NECK: Supple, trachea is midline, no adenopathy, no JVD, no carotid bruit, no c- spine tenderness, neck with full ROM. CHEST: Symmetric, no tenderness at palpation LUNGS: Clear to auscultation bilaterally. No wheezing or crackles. CVS: Regular rate and rhythm, S1 and S2 present, no murmurs or gallops appreciated. ABDOMEN: Diffuse abdominal tenderness. EXTREMITIES: FROM in all major joints, no edema, no cyanosis or clubbing. NEURO: Alert and oriented x 3. No acute neurological deficits. Speech is normal and follows commands. SKIN: Dry and warm Triage Information Reviewed: Yes Vital Signs On Initial Exam: Initial Vitals Temp Pulse Resp BP Pulse Ox 99.1 F 107 20 126/87 97 02/09/18 19:06 02/09/18 19:06 02/09/18 19:06 02/09/18 19:06 02/09/18 19:06 Vital Signs Reviewed: Yes Diagnostics - Vital Signs Vital Signs Temp Pulse Resp BP Pulse Ox 02/09/18 19:06 99.1 F 107 20 126/87 97 - Laboratory Lab Statement: Any lab studies that have been ordered have been reviewed, and results considered in the medical decision making process. Re-Evaluation - Re-Evaluation 1 Re-Evaluation Time: 21:31 Change: Improved Abdominal Pain Fem Course/Dx - Course Course Of Treatment: This patient is a 23 year old F presenting to [facility] with a chief complaint of abdominal pain since 16:00 yesterday. She was seen at [facility] yesterday and discharged today at 13:00 with a dx of colitis. She reports that she was not given any medications upon discharge and is now in severe pain. Patient is now being discharged home with the appropriate prescriptions. - Diagnoses Provider Diagnoses: Infectious colitis Discharge - Sign-Out/Discharge Documenting (check all that apply): Patient Departure - D/C - Discharge Plan Condition: Stable Disposition: HOME Prescriptions: Levofloxacin TAB* [Levaquin TAB*] 500 mg PO DAILY #7 tab metroNIDAZOLE [Flagyl 500 MG TAB] 500 mg PO TID #20 tab oxyCODONE/Acetamin 5/325 MG* [Percocet 5/325 TAB*] 1 tab PO Q6H PRN #14 tab MDD 4 PRN Reason: Pain Patient Education Materials: Infectious Colitis (ED) Referrals: Jus Wright MD [Primary Care Provider] - Additional Instructions: RETURN TO THE EMERGENCY DEPARTMENT FOR CHANGING OR WORSENING SYMPTOMS. FOLLOW UP WITH PCP IN 1-2 DAYS. - Attestation Statements Document Initiated by Scribe: Yes Documenting Scribe: Anthony Mchugh Provider For Whom Scribe is Documenting (Include Credential): Rj Cabrera MD Scribe Attestation: Anthony Watters, scribed for Rj Cabrera MD on 02/09/18 at 4534.
[2018-02-09] MEDS ORDERED: Morphine INJ* 2 MG/ML 1 ML SYRINGE (TWO MG - NEW SYRINGE VERSION) IM ONE (19:33)
[2018-02-09] MEDS ORDERED: PROCHLORPERAZINE INJ 5 MG/ML 2 ML VIAL IM ONE (19:34)
[2018-02-09] MEDS ORDERED: Dicyclomine CAP* 10 MG PO ONE (19:35)
[2018-02-09] MEDS ORDERED: Fluconazole 150 MG (NF) 150 MG TAB PO ONE (21:29)
[2018-02-09] MEDS ORDERED: metroNIDAZOLE TAB* 250 MG PO ONE (21:29)
[2018-02-09] MEDS ORDERED: Levofloxacin TAB* 500 MG PO ONE (21:29)
[2018-02-09 21:55] VITALS: BP 104/70
[2018-02-09] MEDS ORDERED: Fluconazole 100 MG TAB* TAB PO ONE (22:00)
== END 2018-02-09 21:54 | disposition home or self-care (01) ==
LOC: ED 18:58
DX: A09 Infectious gastroenteritis and colitis, unspecified (principal); R10.9 Unspecified abdominal pain; R11.0 Nausea; R19.7 Diarrhea, unspecified; F17.210 Nicotine dependence, cigarettes, uncomplicated
CPT/HCPCS: 82270; 83630; 87045; 87046; 87077; 87493; 87899; 96372; 99283; A9270-GY; J0780; J2270

== ENCOUNTER 2018-04-24 13:48 | Emergency (ER) | payer OTHER ==
[2018-04-24 13:57] VITALS: BP 131/90
--- NOTE | 2018-04-24 14:19 | UC ---
Abdominal Pain Female HPI - HPI Summary HPI Summary: 23-year-old woman comes in to clinic today with a chief complaint of left flank pain. Several days ago she started with some increased urinary urgency and frequency. She was thinking spreading urinary tract infections that she's been taking cranberry pills and Azo. The symptoms are getting worse. Pain is moved up into the left flank and the pain is moderate to severe. The flank pain is worse with twisting turning and bending. No fevers. No prior history of kidney stones or kidney infection. - History of Current Complaint Chief Complaint: UCGU Stated Complaint: LOWER BACK PAIN Time Seen by Provider: 04/24/18 14:06 Hx Last Menstrual Period: 2 wks ago Pain Intensity: 7 Allergies/Adverse Reactions: Allergies Allergy/AdvReac Type Severity Reaction Status Date / Time ketorolac [From Toradol] Allergy Intermediate Hives Verified 04/24/18 13:57 PMH/Surg Hx/FS Hx/Imm Hx Previously Healthy: Yes Other History Of: Negative For: HIV, Hepatitis B, Hepatitis C, Anticoagulant Therapy - Surgical History Surgical History: Yes Surgery Procedure, Year, and Place: Appendectomy 11/25, choleycycectomy 2013 - Family History Known Family History: Positive: Cardiac Disease - grandfather, Other - grandma breast [place] Negative: Hypertension, Diabetes - Social History Alcohol Use: Occasionally Substance Use Type: None Smoking Status (MU): Current Every Day Smoker Type: Cigarettes Amount Used/How Often: 1 pack q 3 days Length of Time of Smoking/Using Tobacco: 2 YEARS Have You Smoked in the Last Year: Yes Household Exposure Type: Cigarettes - Immunization History Most Recent Influenza Vaccination: current Most Recent Tetanus Shot: 07/31/15 Most Recent Pneumonia Vaccination: not indicated Review of Systems All Other Systems Reviewed And Are Negative: Yes Constitutional: Positive: Negative Skin: Positive: Negative Eyes: Positive: Negative ENT: Positive: Negative Respiratory: Positive: Negative Cardiovascular: Positive: Negative Gastrointestinal: Positive: Abdominal Pain, Other - LEFT FLANK PAIN Motor: Positive: Negative Neurovascular: Positive: Negative Musculoskeletal: Positive: Negative Neurological: Positive: Negative Psychological: Positive: Negative Is Patient Immunocompromised?: No Physical Exam Triage Information Reviewed: Yes Appearance: Well-Appearing, Well-Nourished, Pain Distress - MILD Vital Signs: Initial Vital Signs Temp 97.4 F 04/24/18 13:54 Pulse 94 04/24/18 13:54 Resp 18 04/24/18 13:54 BP 131/90 04/24/18 13:54 Pulse Ox 100 04/24/18 13:54 Vital Signs Reviewed: Yes Eye Exam: Normal Eyes: Positive: Conjunctiva Clear Neck exam: Normal Neck: Positive: Supple Respiratory Exam: Normal Respiratory: Positive: Lungs clear, Normal breath sounds, No respiratory distress Cardiovascular: Positive: RRR Abdomen Description: Positive: Soft, CVA Tenderness (L), Other: - MILD TENDERNESS TO PALPATION LUQ. Bowel Sounds: Positive: Present Musculoskeletal Exam: Normal Musculoskeletal: Positive: Strength Intact, ROM Intact Neurological Exam: Normal Neurological: Positive: Alert, Muscle Tone Normal Psychological Exam: Normal Psychological: Positive: Age Appropriate Behavior Skin Exam: Normal Abd Pain Female Course/Dx - Course Course Of Treatment: On exam palpation in the suprapubic region over the bladder is described of the patient is it feels full but not necessarily painful. She is tender in the left flank. She has no history of kidney stones but she's never been checked for them. Kidney stones a possible cause and if there is a combination of a kidney stone and urinary tract infection she needs evaluation now in the emergency department. I recommended going to the emergency department now for further evaluation and care. - Differential Dx/Diagnosis Provider Diagnoses: FLANK PAIN. DYSURIA Discharge - Sign-Out/Discharge Documenting (check all that apply): Patient Departure All imaging exams completed and their final reports reviewed: No Studies - Discharge Plan Condition: Stable Disposition: HOME-RECOMMEND TO ED Prescriptions: Sulfamethox/Trimethoprim DS* [Bactrim DS 800/160 TAB*] 1 tab PO BID #20 tab Patient Education Materials: Flank Pain (ED) Referrals: Jus Wright MD [Primary Care Provider] - - Billing Disposition and Condition Condition: STABLE Disposition: Home-Recommend to ED
--- NOTE | 2018-04-26 17:35 | UC ---
- Progress Note Progress Note: 04/26/2018 urine culture positive for Kelbsiella Pneumonia Pt Rx Bactrim PO which covers for it Sensitive results pending No change Corrine Arriaga PA-C Discharge - Sign-Out/Discharge Documenting (check all that apply): Patient Departure - D/C home All imaging exams completed and their final reports reviewed: No Studies - Discharge Plan Condition: Stable Disposition: HOME-RECOMMEND TO ED Prescriptions: Sulfamethox/Trimethoprim DS* [Bactrim DS 800/160 TAB*] 1 tab PO BID #20 tab Patient Education Materials: Flank Pain (ED) Referrals: Jus Wright MD [Primary Care Provider] - Additional Instructions: GO DIRECTLY TO THE EMERGENCY DEPARTMENT FOR FURTHER EVALUATION. - Billing Disposition and Condition Condition: STABLE Disposition: Home-Recommend to ED
== END 2018-04-24 14:30 | disposition home health service (06) ==
LOC: UCEAST 13:48
DX: R10.9 Unspecified abdominal pain (principal); R30.0 Dysuria; M54.5 Low back pain; F17.210 Nicotine dependence, cigarettes, uncomplicated; Z88.6 Allergy status to analgesic agent
CPT/HCPCS: 81003; 84702; 87077; 87086; 87186; 99212; G0463

== ENCOUNTER 2018-04-24 14:44 | Emergency (ER) | payer OTHER ==
[2018-04-24] MEDS ORDERED: NS 0.9% 1000 ML* 1,000 ML IV ONE (16:16)
[2018-04-24] MEDS ORDERED: Ondansetron INJ* 2 MG/ML VIAL IV ONE (16:16)
[2018-04-24] MEDS ORDERED: Morphine INJ* 10 MG/ML 1 ML CARPUJECT IV ONE (16:18)
[2018-04-24] MEDS ORDERED: Morphine VIAL* 4 MG/ML VIAL (1 ml vial) IV ONE (16:30)
--- NOTE | 2018-04-24 16:41 | ED ---
GI/ HPI - HPI Summary HPI Summary: This patient is a 23 year old female presenting to [facility] with a chief complaint of left flank pain since yesterday. Patient states the pain started out like UTI pain, which was uncomfortable but bearable. However, when she woke up in the morning the pain was excruciating. Patient states her pain is located in the back, near her flank, and rotates around to the front side. The pain is rated 8/10 in severity. Symptoms aggravated by nothing. Symptoms alleviated by nothing. - History of Current Complaint Chief Complaint: EDFlankPain Time Seen by Provider: 04/24/18 15:58 Stated Complaint: ABD PAIN Hx Obtained From: Patient Hx Last Menstrual Period: 2 wks ago Onset/Duration: Started Days Ago - 1, Still Present Timing: Constant Severity: Moderate Pain Intensity: 8 Location of Pain: Flank Pain Characteristics: Sharp Pain Radiates to: LLQ, RLQ - Allergy/Home Medications Allergies/Adverse Reactions: Allergies Allergy/AdvReac Type Severity Reaction Status Date / Time ketorolac [From Toradol] Allergy Intermediate Hives Verified 04/24/18 14:48 PMH/Surg Hx/FS Hx/Imm Hx Previously Healthy: No Endocrine/Hematology History: Denies: Hx Anticoagulant Therapy, Hx Diabetes, Hx Thyroid Disease Cardiovascular History: Denies: Hx Congestive Heart Failure, Hx Deep Vein Thrombosis, Hx Hypertension , Hx Myocardial Infarction, Hx Pacemaker/ICD Respiratory History: Reports: Hx Asthma Denies: Hx Chronic Obstructive Pulmonary Disease (COPD), Hx Lung Cancer, Hx Pneumonia, Hx Pulmonary Embolism GI History: Reports: Hx Gall Bladder Disease - s/p cholecystectomy Denies: Hx Cirrhosis, Hx Crohn's Disease, Hx Diverticulosis, Hx Gastrointestinal Bleed, Hx Irritable Bowel, Hx Obstructive Bowel, Hx Ulcer, Hx Urosepsis History: Reports: Other Problems/Disorders - PCOS Denies: Hx Kidney Stones, Hx Renal Disease Neurological History: Denies: Hx Dementia, Hx Migraine, Hx Seizures, Hx Transient Ischemic Attacks (TIA) Psychiatric History: Denies: Hx Anxiety, Hx Depression, Hx Schizophrenia, Hx Bipolar Disorder - Cancer History Cancer Type, Location and Year: none - Surgical History Surgery Procedure, Year, and Place: Appendectomy 11/25, choleycycectomy 2013 Infectious Disease History: No Infectious Disease History: Denies: Hx Clostridium Difficile, Hx Hepatitis, Hx Human Immunodeficiency Virus (HIV), Hx of Known/Suspected MRSA, Hx Shingles, Hx Tuberculosis, Hx Known/ Suspected VRE, Hx Known/Suspected VRSA, History Other Infectious Disease, Traveled Outside the [place] in Last 30 Days - Family History Known Family History: Positive: Cardiac Disease - grandfather, Other - grandma breast CA Negative: Hypertension, Diabetes - Social History Alcohol Use: Occasionally Hx Substance Use: No Substance Use Type: Reports: Marijuana Hx Tobacco Use: Yes Smoking Status (MU): Light Every Day Tobacco Smoker Type: Cigarettes Amount Used/How Often: 1 pack q 3 days Length of Time of Smoking/Using Tobacco: 2 YEARS Have You Smoked in the Last Year: Yes Review of Systems Positive: Fever Negative: Cough Positive: flank pain Positive: Other - back pain All Other Systems Reviewed And Are Negative: Yes Physical Exam - Summary Physical Exam Summary: VITAL SIGNS: Reviewed. GENERAL: Patient is a well-developed and nourished female who is lying comfortable in the stretcher. Patient is not in any acute respiratory distress. HEAD AND FACE: No signs of trauma. No ecchymosis, hematomas or skull depressions. No sinus tenderness. EYES: PERRLA, EOMI x 2, No injected conjunctiva, no nystagmus. EARS: Hearing grossly intact. Ear canals and tympanic membranes are within normal limits. MOUTH: Oropharynx within normal limits. NECK: Supple, trachea is midline, no adenopathy, no JVD, no carotid bruit, no c- spine tenderness, neck with full ROM. CHEST: Symmetric, no tenderness at palpation LUNGS: Clear to auscultation bilaterally. No wheezing or crackles. CVS: Regular rate and rhythm, S1 and S2 present, no murmurs or gallops appreciated. ABDOMEN: Bilateral blank tenderness, more left than right. EXTREMITIES: FROM in all major joints, no edema, no cyanosis or clubbing. NEURO: Alert and oriented x 3. No acute neurological deficits. Speech is normal and follows commands. SKIN: Dry and warm Triage Information Reviewed: Yes Vital Signs On Initial Exam: Initial Vitals Temp Pulse Resp BP Pulse Ox 98 F 94 16 139/89 99 04/24/18 14:46 04/24/18 14:46 04/24/18 14:46 04/24/18 14:46 04/24/18 14:46 Vital Signs Reviewed: Yes Diagnostics - Vital Signs Vital Signs Temp Pulse Resp BP Pulse Ox 04/24/18 14:46 98 F 94 16 139/89 99 - Laboratory Result Diagrams: 04/24/18 16:36 04/24/18 16:36 Lab Statement: Any lab studies that have been ordered have been reviewed, and results considered in the medical decision making process. - CT CT Abd/Pel CT Interpretation Completed By: Radiologist Summary of CT Findings: CT Abd/Pel reveals, per radiologist, IMPRESSION: NO HYDRONEPHROSIS OR NEPHROLITHIASIS. ED physician has reviewed this radiology report. GIGU Course/Dx - Course Assessment/Plan: This patient is a 23 year old female presenting to [facility] with a chief complaint of left flank pain since yesterday. Patient states the pain started out like UTI pain, which was uncomfortable but bearable. However, when she woke up in the morning the pain was excruciating. Patient states her pain is located in the back, near her flank, and rotates around to the front side. The pain is rated 8/10 in severity. Symptoms aggravated by nothing. Symptoms alleviated by nothing. Blood work without any significant abnormality except for WBCs of 12.8, CRP of 11.3. Urinalysis with 1+ protein, 1 plus blood and trace leukocytes. WBCs of 1, RBCs of 1 and positive squamous epithelial cells. Alert because of the symptoms of the flank pain, urinary frequency I believe that the patient complains extensively with a UTI. Abdominopelvic CT impression : No hydronephrosis or nephrolithiasis. I offered the patient a pelvic exam however she declines this. The patient does have any vaginal discharge or bleeding. In the ED course the patient was given IV fluids, Zofran for nausea and morphine for pain since the patient is allergic to Toradol. The patient also was given 1 dose of Rocephin. At this time the patient will be discharged home with a prescription for ciprofloxacin for 3 days. I discussed all the findings and test results with the patient. Patient was instructed to return to the emergency room immediately if any of the symptoms return or worsens. Plan of care was discussed with the patient and understands and agrees. All questions were answered at patient satisfaction. There were no further complaints or concerns. Lung exam before discharge: CTA B/L. Good air exchange. No wheezing or crackles heard. CVS: S1 and S2 present. No murmurs appreciated. Patient is alert and oriented x 3. Patient is hemodynamically stable. Patient will be discharged home with follow up PCP in the next 2-3 days - Diagnoses Differential Diagnoses - Female: Diverticulitis, Gastroenteritis (Viral), Gastroenteritis (Bacterial), Renal Calculi, Renal Colic, Urinary Tract Infection Provider Diagnoses: UTI (urinary tract infection) Discharge - Sign-Out/Discharge Documenting (check all that apply): Patient Departure - Discharge Plan Condition: Stable Disposition: HOME Prescriptions: Ciprofloxacin TAB* [Cipro 250 MG Tab*] 250 mg PO BID #6 tab Patient Education Materials: Urinary Tract Infection in Women (ED) Referrals: Jus Wright MD [Primary Care Provider] - Additional Instructions: Return to the ED for any new or worsening symptoms. - Billing Disposition and Condition Condition: STABLE Disposition: Home - Attestation Statements Document Initiated by Ирина: Yes Documenting Scribe: Estephanie Gordon Provider For Whom Ирина is Documenting (Include Credential): Jean Marie Holland MD Scribe Attestation: Estephanie Watters scribed for Jean Marie Holland MD on 04/24/18 at 1856. Scribe Documentation Reviewed: Yes Provider Attestation: The documentation as recorded by the Estephanie cruz accurately reflects the service I personally performed and the decisions made by Jean Marie de la torre MD
[2018-04-24 16:52] LABS: ABS Basophils 0 10^3/ul (0-0.2); ABS Eosinophils 0.1 10^3/ul (0-0.6); ABS Lymphocytes 2.1 10^3/ul (1.0-4.8); ABS Monocytes 0.7 10^3/ul (0-0.8); ABS Neutrophils 9.8 10^3/ul (1.5-7.7); ABS Nucleated RBC 0 10^3/ul; Eosinophil % 0.7 % (0-6); Hematocrit 39 % (35-47); Lymphocyte % 16.5 % (25-47); Mean Corpuscular HGB Conc 34 g/dl (31-36); Mean Corpuscular Hemoglobin 29 pg (27-31); Mean Corpuscular Volume 87 fL (80-97); Nucleated Red Blood Cells % 0; Platelet Count 331 10^3/ul (150-450); Red Blood Count 4.45 10^6/ul (4.00-5.40); Red Cell Distribution Width 14 % (10.5-15); White Blood Count 12.8 10^3/ul (3.5-10.8)
[2018-04-24 16:59] LABS: Urine Appearance Clear; Urine Blood 1+ (Negative); Urine Color Yellow; Urine Ketones Negative (Negative); Urine Protein 1+(30 mg/dL) (Negative); Urine Red Blood Cell 1+(3-5/hpf) (Absent); Urine Specific Gravity 1.011 (1.010-1.030); Urine Urobilinogen Negative (Negative); Urine White Blood Cell 1+(6-10/hpf) (Absent)
[2018-04-24 17:03] LABS: EGFR Non-African American 78.6 (>60)
[2018-04-24] MEDS ORDERED: cefTRIAXone(*) 1 GM in NS 0.9% 50 ML* 50 ML IVPB ONE (17:36)
[2018-04-24 18:42] VITALS: BP 139/84
== END 2018-04-24 18:41 | disposition home or self-care (01) ==
LOC: ED 14:44
DX: N39.0 Urinary tract infection, site not specified (principal); R10.84 Generalized abdominal pain; M54.9 Dorsalgia, unspecified; F17.210 Nicotine dependence, cigarettes, uncomplicated
CPT/HCPCS: 36415; 74176; 80053; 81003; 81015; 83605; 83690; 84702; 85025; 86140; 96365; 96375; 99283; J0696; J2270; J2405

== ENCOUNTER 2018-06-13 11:15 | Emergency (ER) | payer OTHER ==
[2018-06-13 12:57] LABS: Hematocrit 40 % (35-47); Hemoglobin 13.4 g/dl (12.0-16.0); Mean Corpuscular HGB Conc 33 g/dl (31-36); Mean Corpuscular Hemoglobin 29 pg (27-31); Mean Corpuscular Volume 88 fL (80-97); Mean Platelet Volume 7.9 fL (7.4-10.4); Platelet Count 372 10^3/ul (150-450); Red Blood Count 4.58 10^6/ul (4.00-5.40); Red Cell Distribution Width 14 % (10.5-15); White Blood Count 19.2 10^3/ul (3.5-10.8)
--- NOTE | 2018-06-13 13:07 | ED ---
Influenza-Like Illness - HPI Summary HPI Summary: A 23 y/o F presents to ED with c/o n/v onset last night. Associated sx: weakness , fatigue, chills, nonproductive cough and muscular aches and pain. Denies sore throat, ear aches. She did not get her flu shot this year. Patient reports that last night she was drinking alcohol and had some marijuana. Allergies: Toradol. No smoking. - History of Current Complaint Chief Complaint: EDNauseaVomitDiarrh Hx Obtained From: Patient Onset/Duration: Sudden Onset, Lasting Hours, Still Present Severity: Moderate Associated Signs & Symptoms: Cough - Allergy/Home Medications Allergies/Adverse Reactions: Allergies Allergy/AdvReac Type Severity Reaction Status Date / Time ketorolac [From Toradol] Allergy Intermediate Hives Verified 04/24/18 14:48 PMH/Surg Hx/FS Hx/Imm Hx Previously Healthy: No Endocrine/Hematology History: Denies: Hx Anticoagulant Therapy, Hx Diabetes, Hx Thyroid Disease Cardiovascular History: Denies: Hx Congestive Heart Failure, Hx Deep Vein Thrombosis, Hx Hypertension , Hx Myocardial Infarction, Hx Pacemaker/ICD Respiratory History: Reports: Hx Asthma Denies: Hx Chronic Obstructive Pulmonary Disease (COPD), Hx Lung Cancer, Hx Pneumonia, Hx Pulmonary Embolism GI History: Reports: Hx Gall Bladder Disease - s/p cholecystectomy Denies: Hx Cirrhosis, Hx Crohn's Disease, Hx Diverticulosis, Hx Gastrointestinal Bleed, Hx Irritable Bowel, Hx Obstructive Bowel, Hx Ulcer, Hx Urosepsis History: Reports: Other Problems/Disorders - PCOS Denies: Hx Kidney Stones, Hx Renal Disease Neurological History: Denies: Hx Dementia, Hx Migraine, Hx Seizures, Hx Transient Ischemic Attacks (TIA) Psychiatric History: Denies: Hx Anxiety, Hx Depression, Hx Schizophrenia, Hx Bipolar Disorder - Cancer History Cancer Type, Location and Year: none - Surgical History Surgery Procedure, Year, and Place: Appendectomy 11/25, choleycycectomy 2013 Infectious Disease History: No Infectious Disease History: Denies: Hx Clostridium Difficile, Hx Hepatitis, Hx Human Immunodeficiency Virus (HIV), Hx of Known/Suspected MRSA, Hx Shingles, Hx Tuberculosis, Hx Known/ Suspected VRE, Hx Known/Suspected VRSA, History Other Infectious Disease, Traveled Outside the [place] in Last 30 Days - Family History Known Family History: Positive: Cardiac Disease - grandfather, Other - grandma breast CA Negative: Hypertension, Diabetes - Social History Occupation: Student Lives: Alone Alcohol Use: Occasionally Hx Substance Use: Yes Substance Use Type: Reports: Marijuana Hx Tobacco Use: Yes Smoking Status (MU): Light Every Day Tobacco Smoker Type: Cigarettes Amount Used/How Often: 1 pack q 3 days Length of Time of Smoking/Using Tobacco: 2 YEARS Have You Smoked in the Last Year: Yes Review of Systems Positive: Chills, Fatigue Negative: Sore Throat, Ear Ache Positive: Cough - nonproductive Positive: Abdominal Pain, Vomiting, Nausea Positive: Weakness All Other Systems Reviewed And Are Negative: Yes Physical Exam - Summary Physical Exam Summary: GENERAL: Patient is a well-developed and nourished F who is lying comfortable in the stretcher. Patient is not in any acute respiratory distress. HEAD AND FACE: Normocephalic EYES: PERRLA, EOMI x 2. EARS: Hearing grossly intact. MOUTH: Oropharynx within normal limits. NECK: Supple, trachea is midline, no adenopathy, no JVD, no carotid bruit. CHEST: Symmetric, no tenderness at palpation LUNGS: Rhonchi throughout, no wheezing CVS: Regular rate and rhythm, S1 and S2 present, no murmurs or gallops appreciated. ABDOMEN: Soft, non-tender. Bowel sounds are normal. No abdominal abnormal pulsations. EXTREMITIES: Full ROM in all major joints, no edema, no cyanosis or clubbing. NEURO: Alert and oriented x 3. No acute neurological deficits. Speech is normal and follows commands. SKIN: Dry and warm Triage Information Reviewed: Yes Vital Signs On Initial Exam: Initial Vitals Temp Pulse Resp BP Pulse Ox 97 F 61 24 113/78 100 06/13/18 11:22 06/13/18 11:22 06/13/18 11:22 06/13/18 11:22 06/13/18 11:22 Vital Signs Reviewed: Yes Diagnostics - Vital Signs Vital Signs Temp Pulse Resp BP Pulse Ox 06/13/18 11:22 97 F 61 24 113/78 100 - Laboratory Lab Results: Lab Results 06/13/18 Range/Units 12:27 WBC 19.2 H (3.5-10.8) 10^3/ul RBC 4.58 (4.00-5.40) 10^6/ul Hgb 13.4 (12.0-16.0) g/dl Hct 40 (35-47) % MCV 88 (80-97) fL MCH 29 (27-31) pg MCHC 33 (31-36) g/dl RDW 14 (10.5-15) % Plt Count 372 (150-450) 10^3/ul MPV 7.9 (7.4-10.4) fL Result Diagrams: 06/13/18 15:19 06/13/18 12:27 Lab Statement: Any lab studies that have been ordered have been reviewed, and results considered in the medical decision making process. - Radiology CXR Radiology Interpretation Completed By: Radiologist Summary of Radiographic Findings: IMPRESSION: No radiographic evidence of acute cardiopulmonary disease. ED provider has reviewed this report. Flu Symptom Course/Dx - Course Course Of Treatment: 23-year-old female who presents to the emergency room with nausea vomiting muscular aches and pain. Is reviewed and is remarkable for leukocytosis with left shift with a white count of 19, urine drug screen positive for cannabinoids. I suspect patient's symptoms most likely secondary to cannabinoid and alcohol use. On examination, patient had no tenderness to palpation of her abdomen and other completely benign examination so I didn't see the need to do any images at this time. Patient given IV fluids, GI cocktail , Zofran and is much improved and is requesting to be discharged home at this time without further intervention. Patient is otherwise hemodynamically stable and is safe for discharge home and return precautions given. She will follow- up with her doctor. - Diagnoses Provider Diagnoses: Gastritis, Drug use Discharge - Sign-Out/Discharge Documenting (check all that apply): Patient Departure - DC - Discharge Plan Condition: Stable Disposition: HOME Prescriptions: Ondansetron ODT TAB* [Zofran 4 MG Odt TAB*] 4 mg PO Q6H PRN #12 tab.odt PRN Reason: Nausea Pantoprazole TAB (NF) [Protonix TAB (NF)] 20 mg PO DAILY #30 tab Referrals: Jus Wright MD [Primary Care Provider] - (1-3 days) Additional Instructions: Follow up with your primary care physician in 1-3 days. RETURN TO THE EMERGENCY DEPARTMENT FOR CHANGING OR WORSENING SYMPTOMS. - Billing Disposition and Condition Condition: STABLE Disposition: Home - Attestation Statements Document Initiated by Scribe: Yes Documenting Scribe: [facility] Provider For Whom Liziblove is Documenting (Include Credential): Dr. Pastora Owens MD Scribe Attestation: González Watters, scribed for Dr. Pastora Owens MD on 06/13/18 at 1756. Scribe Documentation Reviewed: Yes Provider Attestation: The documentation as recorded by the González cruz accurately reflects the service I personally performed and the decisions made by me, Dr. Pastora Owens MD Status of Scribe Document: Viewed
[2018-06-13 13:14] LABS: ALT 17 U/L (7-52); AST 18 U/L (13-39); Albumin 4.6 g/dL (3.2-5.2); Albumin/Globulin Ratio 1.4 (1-3); Alkaline Phosphatase 65 U/L (34-104); Anion Gap 10 mmol/L (2-11); BUN/Creatinine Ratio 19.1 (8-20); Blood Urea Nitrogen 13 mg/dL (6-24); CO2 Carbon Dioxide 24 mmol/L (22-32); Calcium 9.8 mg/dL (8.6-10.3); Chloride 106 mmol/L (101-111); EGFR Non-African American 107.2 (>60); Globulin 3.2 g/dL (2-4); Glucose 122 mg/dL (70-100); Potassium 3.8 mmol/L (3.5-5.0); Sodium 140 mmol/L (135-145); Total Protein 7.8 g/dL (6.4-8.9)
[2018-06-13 13:20] LABS: HCG Pregnancy < 0.60 mIU/mL
[2018-06-13] MEDS: Ondansetron INJ* 2 MG/ML VIAL IV ONE (13:26)
[2018-06-13] MEDS: NS 0.9% 1000 ML* 2,000 ML IV ONE (13:26)
[2018-06-13 13:51] LABS: ABS Basophils 0 10^3/ul (0-0.2); ABS Eosinophils 0 10^3/ul (0-0.6); ABS Lymphocytes 0.9 10^3/ul (1.0-4.8); ABS Monocytes 0.3 10^3/ul (0-0.8); ABS Neutrophils 17.7 10^3/ul (1.5-7.7); ABS Nucleated RBC 0 10^3/ul; Eosinophil % 0 %; Lymphocyte % 4.5 %; Nucleated Red Blood Cells % 0
[2018-06-13 15:33] LABS: ABS Basophils 0 10^3/ul (0-0.2); ABS Eosinophils 0 10^3/ul (0-0.6); ABS Lymphocytes 0.8 10^3/ul (1.0-4.8); ABS Monocytes 0.4 10^3/ul (0-0.8); ABS Neutrophils 18.1 10^3/ul (1.5-7.7); ABS Nucleated RBC 0 10^3/ul; Eosinophil % 0 %; Hematocrit 41 % (35-47); Hemoglobin 13.3 g/dl (12.0-16.0); Lymphocyte % 4.4 %; Mean Corpuscular HGB Conc 33 g/dl (31-36); Mean Corpuscular Hemoglobin 29 pg (27-31); Mean Corpuscular Volume 88 fL (80-97); Mean Platelet Volume 7.7 fL (7.4-10.4); Nucleated Red Blood Cells % 0; Platelet Count 340 10^3/ul (150-450); Red Blood Count 4.58 10^6/ul (4.00-5.40); Red Cell Distribution Width 14 % (10.5-15); White Blood Count 19.4 10^3/ul (3.5-10.8)
[2018-06-13 15:41] LABS: Urine Appearance Cloudy; Urine Bacteria Absent (Absent); Urine Bilirubin Negative (Negative); Urine Blood Negative (Negative); Urine Color Yellow; Urine Glucose Negative (Negative); Urine Ketones 2+ (Negative); Urine Nitrite Negative (Negative); Urine Protein 1+(30 mg/dL) (Negative); Urine Red Blood Cell Absent (Absent); Urine Specific Gravity 1.025 (1.010-1.030); Urine Urobilinogen Negative (Negative); Urine White Blood Cell Trace(0-5/hpf) (Absent)
[2018-06-13] MEDS ORDERED: Al Hydrox/Mg Hydrox/Simet LIQ* 30 ML UDC ONE (15:49)
[2018-06-13] MEDS ORDERED: Lidocaine 2% VISCOUS* 15 ML UDC ONE (15:49)
[2018-06-13 15:50] LABS: Barbiturates Urine Screen None Detected (None Detect); Benzodiazepine Urine Screen None Detected (None Detect); Urine Cannabinoids Screen Presumptive Positive (None Detect)
[2018-06-13] MEDS: Al Hydrox/Mg Hydrox/Simet LIQ* 30 ML UDC PO ONE (15:51)
[2018-06-13] MEDS: Lidocaine 2% VISCOUS* 15 ML UDC PO ONE (15:52)
[2018-06-13 16:11] VITALS: BP 127/81
== END 2018-06-13 16:10 | disposition home or self-care (01) ==
LOC: ED 11:15
DX: K29.70 Gastritis, unspecified, without bleeding (principal); F19.90 Other psychoactive substance use, unspecified, uncomplicated; F17.210 Nicotine dependence, cigarettes, uncomplicated
CPT/HCPCS: 36415; 71046; 80053; 80307; 81003; 81015; 83605; 84702; 85025; 86140; 87040; 87077; 87086; 96361; 96374; 99283; A9270-GY; J2405

== ENCOUNTER 2018-08-02 11:40 | Emergency (ER) | payer OTHER ==
--- NOTE | 2018-08-02 13:12 | ED ---
GI/ HPI - HPI Summary HPI Summary: Patient is a 23 y/o F presenting to ED with complaints pelvic/uterine pain. She states that she has been seen by OBGYN three times in the past six weeks for similar Sx. Patient is scheduled to receive US on 08/25. However, she states that she has been experiencing constant pelvic/uterine pain for the past three days. Patient notes that pain has previously been intermittent, severity of current episode is worse than previous episodes. In room, patient rates pain 7/ 10 and describes it as It feels like someone held me down and beat me there, like a giant bruise. She denies N/V, vaginal discharge and vaginal bleeding. She notes that pain is occasionally worse with intercourse, but not always. Patient has been sexually active with the same person, uses condoms. No Hx of STDs, states that pelvic exam was done previously at OBGYN and cultures were sent. Last seen by OBGYN, Dr. Bautista, 1-2 weeks ago. Review of medical records showed cultures were negative. She states LNMP was in May, she is on control, patient states she was formerly on [id number] but has recently had her control changed and she is unsure of the new medication's name at this time. PMHx of Salmonella in January of last year. PSHx of cholecystectomy, appendectomy. Toradol allergy is reported, states the one time she received it she developed hives, pruritus. However, she claims no allergy to ibuprofen, which she has been taking these past few days with no relief in pain. On triage , nothing is noted to aggravate/alleviate Sx. Home medications and allergies are reviewed. - History of Current Complaint Chief Complaint: EDUrogenitalProblems Time Seen by Provider: 08/02/18 12:56 Stated Complaint: ABD PAIN Hx Obtained From: Patient, Medical Records Hx Last Menstrual Period: 2 wks ago Onset/Duration: Started Days Ago - three, Still Present Timing: Constant, Lasting Days - three Severity: Severe - 7/10 Current Severity: Severe - 7/10 Pain Intensity: 7 Location of Pain: Suprapubic Additional Location for Females: Uterus Pain Characteristics: Other: - "It feels like someone held me down and beat me there, like a giant bruise Associated Signs and Symptoms: Positive: Other: - pelvic pain, uterine pain. Negative: Nausea, Vomiting Additional Signs & Symptoms: Negative: Vaginal Bleeding, Vaginal Discharge Aggravating Factor(s): [place] Alleviating Factor(s): Nothing - Allergy/Home Medications Allergies/Adverse Reactions: Allergies Allergy/AdvReac Type Severity Reaction Status Date / Time ketorolac [From Toradol] Allergy Intermediate Hives Verified 08/02/18 11:55 Home Medications: Home Medications Control 1 tab PO DAILY 08/02/18 [History Confirmed 08/02/18] PMH/Surg Hx/FS Hx/Imm Hx Endocrine/Hematology History: Denies: Hx Anticoagulant Therapy, Hx Diabetes, Hx Thyroid Disease Cardiovascular History: Denies: Hx Congestive Heart Failure, Hx Deep Vein Thrombosis, Hx Hypertension , Hx Myocardial Infarction, Hx Pacemaker/ICD Respiratory History: Reports: Hx Asthma Denies: Hx Chronic Obstructive Pulmonary Disease (COPD), Hx Lung Cancer, Hx Pneumonia, Hx Pulmonary Embolism GI History: Reports: Hx Gall Bladder Disease - s/p cholecystectomy Denies: Hx Cirrhosis, Hx Crohn's Disease, Hx Diverticulosis, Hx Gastrointestinal Bleed, Hx Irritable Bowel, Hx Obstructive Bowel, Hx Ulcer, Hx Urosepsis History: Reports: Other Problems/Disorders - PCOS Denies: Hx Kidney Stones, Hx Renal Disease Neurological History: Denies: Hx Dementia, Hx Migraine, Hx Seizures, Hx Transient Ischemic Attacks (TIA) Psychiatric History: Denies: Hx Anxiety, Hx Depression, Hx Schizophrenia, Hx Bipolar Disorder - Cancer History Cancer Type, Location and Year: none - Surgical History Surgery Procedure, Year, and Place: Appendectomy 11/25, choleycycectomy 2013 Infectious Disease History: No Infectious Disease History: Denies: Hx Clostridium Difficile, Hx Hepatitis, Hx Human Immunodeficiency Virus (HIV), Hx of Known/Suspected MRSA, Hx Shingles, Hx Tuberculosis, Hx Known/ Suspected VRE, Hx Known/Suspected VRSA, History Other Infectious Disease, Traveled Outside the [place] in Last 30 Days - Family History Known Family History: Positive: Cardiac Disease - grandfather, Other - grandma breast CA Negative: Hypertension, Diabetes - Social History Alcohol Use: Occasionally Hx Substance Use: Yes Substance Use Type: Reports: Marijuana Hx Tobacco Use: Yes Smoking Status (MU): Light Every Day Tobacco Smoker Type: Cigarettes Amount Used/How Often: 1 pack q 3 days Length of Time of Smoking/Using Tobacco: 2 YEARS Have You Smoked in the Last Year: Yes Review of Systems Positive: Abdominal Pain - suprapubic/uterine pain . Negative: Vomiting, Nausea Genitourinary: Other - NEGATIVE - VAGINAL BLEEDING Negative: discharge - VAGINAL All Other Systems Reviewed And Are Negative: Yes Physical Exam - Summary Physical Exam Summary: GENERAL: Patient is a well-developed and nourished FEMALE who is lying comfortable in the stretcher. Patient is not in any acute respiratory distress. Patient is tender to palpation bilaterally at pelvic/ovarian area. No pelvic exam done as patient had one a week ago, cultures were reviewed and negative. HEAD AND FACE: Normocephalic EYES: PERRLA, EOMI x 2. EARS: Hearing grossly intact. MOUTH: Oropharynx within normal limits. NECK: Supple, trachea is midline, no adenopathy, no JVD, no carotid bruit. CHEST: Symmetric, no tenderness at palpation LUNGS: Clear to auscultation bilaterally. No wheezing or crackles. CVS: Regular rate and rhythm, S1 and S2 present, no murmurs or gallops appreciated. ABDOMEN: Soft, non-tender. Bowel sounds are normal. No abdominal abnormal pulsations. EXTREMITIES: Full ROM in all major joints, no edema, no cyanosis or clubbing. NEURO: Alert and oriented x 3. No acute neurological deficits. Speech is normal and follows commands. Triage Information Reviewed: Yes Vital Signs On Initial Exam: Initial Vitals Temp Pulse Resp BP Pulse Ox 98.1 F 77 16 115/77 98 08/02/18 11:51 08/02/18 11:51 08/02/18 11:51 08/02/18 11:51 08/02/18 11:51 Vital Signs Reviewed: Yes Diagnostics - Vital Signs Vital Signs Temp Pulse Resp BP Pulse Ox 08/02/18 11:51 98.1 F 77 16 115/77 98 - Laboratory Result Diagrams: 08/02/18 13:42 08/02/18 13:42 Lab Statement: Any lab studies that have been ordered have been reviewed, and results considered in the medical decision making process. - Ultrasound No standard instances Ultrasound Interpretation Completed By: Radiologist Summary of Ultrasound Findings: IMPRESSION: 1. THERE IS A SMALL AMOUNT OF SIMPLE FLUID WITHIN THE CUL-DE-SAC. THIS MAY BE PHYSIOLOGIC. IN A REPRODUCTIVE AGE FEMALE. 2. PROMINENCE OF THE VASCULATURE ALONG THE BROAD LIGAMENTS BILATERALLY. WHILE. NONSPECIFIC, THIS CAN BE ASSOCIATED WITH PELVIC CONGESTION SYNDROME IN THE CORRECT. CLINICAL SETTING. 3. NO SONOGRAPHIC FEATURES OF TORSION. PLEASE NOTE THAT PARTIAL OR INTERMITTENT TORSION. MAY BE SONOGRAPHICALLY NORMAL. THIS REPORT WAS REVIEWED BY ED PHYSICIAN. Re-Evaluation - Re-Evaluation First Eval Re-Evaluation Time: 14:28 Change: Improved Comment: Discussed results with patient. Patient is hemodynamically stable and safe for discharge. Strict return precautions given and patient will otherwise follow up with PCP and OBGYN GIGU Course/Dx - Course Course Of Treatment: Patient is a 23 y/o F presenting to ED with complaints pelvic/uterine pain. She states that she has been seen by OBGYN three times in the past six weeks for similar Sx. Patient is scheduled to receive US on 08/25. However, she states that she has been experiencing constant pelvic/uterine pain for the past three days. Patient notes that pain has previously been intermittent, severity of current episode is worse than previous episodes. In room, patient rates pain 7/10 and describes it as It feels like someone held me down and beat me there, like a giant bruise. She denies N/V, vaginal discharge and vaginal bleeding. She notes that pain is occasionally worse with intercourse, but not always. Patient has been sexually active with the same person, uses condoms. No Hx of STDs, states that pelvic exam was done previously at OBGYN and cultures were sent. Last seen by OBGYN, Dr. Bautista, 1-2 weeks ago. Review of medical records showed cultures were negative. She states LNMP was in May, she is on control, patient states she was formerly on [id number] but has recently had her control changed and she is unsure of the new medication's name at this time. PMHx of Salmonella in January of last year. PSHx of cholecystectomy, appendectomy. Toradol allergy is reported , states the one time she received it she developed hives, pruritus. However, she claims no allergy to ibuprofen, which she has been taking these past few days with no relief in pain. On physical exam, patient is tender to palpation bilaterally at pelvic/ovarian area. No pelvic exam done as patient had one a week ago, cultures were reviewed and negative. UA was negative. Labs showed WBC 7.5, lactic acid 0.4, CRP 1.9, lipase 23, beta HCG < 0.6. During ED course , patient received Zofran 4 mg SL ONCE, Morphine 4 mg IM ONCE, and Percocet 5/ 325 2 tabs PO ONCE. TRANSVAGINAL US IMPRESSION: 1. THERE IS A SMALL AMOUNT OF SIMPLE FLUID WITHIN THE CUL-DE-SAC. THIS MAY BE PHYSIOLOGIC. IN A REPRODUCTIVE AGE FEMALE. 2. PROMINENCE OF THE VASCULATURE ALONG THE BROAD LIGAMENTS BILATERALLY. WHILE. NONSPECIFIC, THIS CAN BE ASSOCIATED WITH PELVIC CONGESTION SYNDROME IN THE CORRECT. CLINICAL SETTING. 3. NO SONOGRAPHIC FEATURES OF TORSION. PLEASE NOTE THAT PARTIAL OR INTERMITTENT TORSION. MAY BE SONOGRAPHICALLY NORMAL. Discussed results with patient. Patient is hemodynamically stable and safe for discharge. Strict return precautions given and patient will otherwise follow up with PCP and OBGYN - Diagnoses Provider Diagnoses: Pelvic congestion syndrome Discharge - Sign-Out/Discharge Documenting (check all that apply): Patient Departure - discharge Patient Received Moderate/Deep Sedation with Procedure: No - NO PROCEDURES DONE - Discharge Plan Condition: Stable Disposition: HOME Patient Education Materials: Pelvic Pain in Women (ED) Referrals: Jus Wright MD [Primary Care Provider] - 3 Days Kyaw Gallo MD [Medical Doctor] - 3 Days Additional Instructions: Follow up with your primary care physician and OBGYN in 1-3 days. RETURN TO THE EMERGENCY DEPARTMENT FOR CHANGING OR WORSENING SYMPTOMS. - Billing Disposition and Condition Condition: STABLE Disposition: Home - Attestation Statements Document Initiated by Ирина: Yes Documenting Scribe: NEIL GOYAL Provider For Whom Ирина is Documenting (Include Credential): AMELIA BURNHAM MD Scribe Attestation: INEIL , scribed for AMELIA BURNHAM MD on 08/02/18 at 2127. Scribe Documentation Reviewed: Yes Provider Attestation: The documentation as recorded by the NEIL cruz accurately reflects the service I personally performed and the decisions made by me, AMELIA BURNHAM MD Status of Scribe Document: Viewed
[2018-08-02] MEDS ORDERED: Morphine VIAL* 10 MG/ML 1 ML VIAL IM ONE (13:33)
[2018-08-02] MEDS ORDERED: Ondansetron ODT TAB* 4 MG SL ONE (13:33)
[2018-08-02 13:49] LABS: ABS Basophils 0 10^3/ul (0-0.2); ABS Eosinophils 0.1 10^3/ul (0-0.6); ABS Lymphocytes 2.2 10^3/ul (1.0-4.8); ABS Monocytes 0.5 10^3/ul (0-0.8); ABS Neutrophils 4.7 10^3/ul (1.5-7.7); ABS Nucleated RBC 0 10^3/ul; Eosinophil % 1.5 %; Hematocrit 39 % (35-47); Lymphocyte % 28.7 %; Mean Corpuscular HGB Conc 33 g/dl (31-36); Mean Corpuscular Hemoglobin 30 pg (27-31); Mean Corpuscular Volume 89 fL (80-97); Nucleated Red Blood Cells % 0; Platelet Count 282 10^3/ul (150-450); Red Blood Count 4.42 10^6/ul (4.00-5.40); Red Cell Distribution Width 13 % (10.5-15); White Blood Count 7.5 10^3/ul (3.5-10.8)
[2018-08-02 13:50] LABS: Urine Appearance Clear; Urine Bilirubin Negative (Negative); Urine Blood Negative (Negative); Urine Color Yellow; Urine Glucose Negative (Negative); Urine Ketones Negative (Negative); Urine Nitrite Negative (Negative); Urine Protein Negative (Negative); Urine Urobilinogen Negative (Negative)
[2018-08-02 14:07] LABS: ALT 13 U/L (7-52); AST 17 U/L (13-39); Albumin 4.3 g/dL (3.2-5.2); Albumin/Globulin Ratio 1.5 (1-3); Alkaline Phosphatase 51 U/L (34-104); Anion Gap 3 mmol/L (2-11); BUN/Creatinine Ratio 14.5 (8-20); Blood Urea Nitrogen 10 mg/dL (6-24); CO2 Carbon Dioxide 28 mmol/L (22-32); Calcium 9.3 mg/dL (8.6-10.3); Chloride 107 mmol/L (101-111); EGFR African American 127.6 (>60); EGFR Non-African American 105.4 (>60); Globulin 2.9 g/dL (2-4); Glucose 92 mg/dL (70-100); Potassium 4.3 mmol/L (3.5-5.0); Sodium 138 mmol/L (135-145); Total Protein 7.2 g/dL (6.4-8.9)
[2018-08-02 14:13] LABS: HCG Pregnancy < 0.60 mIU/mL
[2018-08-02] MEDS ORDERED: oxyCODONE/Acetamin 5/325 MG* TAB PO ONE (14:30)
[2018-08-02 15:27] VITALS: BP 118/73
== END 2018-08-02 15:28 | disposition home or self-care (01) ==
LOC: ED 11:40
DX: N94.89 Other specified conditions associated with female genital organs and menstrual cycle (principal); F17.210 Nicotine dependence, cigarettes, uncomplicated
CPT/HCPCS: 36415; 76830; 80053; 81003; 83605; 83690; 84702; 85025; 86140; 96372; 99283; A9270-GY; J2270

== ENCOUNTER 2019-03-09 20:16 | Emergency (ER) | payer BC, OTHER ==
[2019-03-09 20:30] VITALS: BP 105/62
[2019-03-09] MEDS ORDERED: Acetaminophen TAB* 325 MG PO ONE (20:38)
[2019-03-09 21:02] LABS: Influenza A Molecular NEGATIVE (Negative); Influenza B Molecular NEGATIVE (Negative)
--- NOTE | 2019-03-09 21:35 | UC ---
UC General HPI - HPI Summary HPI Summary: Pt presents with body aches, fatigue, fevers, and "kidney pain" Pt has been taking APAP with mild improvement. No rash. No headache, nausea, vomiting. Pt denies rash. No sick contact. no known tick bites. no travem medications reviewed this visit not - History of Current Complaint Chief Complaint: UCGeneralIllness Stated Complaint: body aches Time Seen by Provider: 03/09/19 21:33 Hx Obtained From: Patient Hx Last Menstrual Period: unsure Onset/Duration: Gradual Onset Onset Severity: Moderate Current Severity: Moderate Pain Intensity: 8 - Allergy/Home Medications Allergies/Adverse Reactions: Allergies Allergy/AdvReac Type Severity Reaction Status Date / Time ketorolac [From Toradol] Allergy Intermediate Hives Verified 03/14/19 12:37 PMH/Surg Hx/FS Hx/Imm Hx Previously Healthy: Yes Other History Of: Negative For: HIV, Hepatitis B, Hepatitis C, Anticoagulant Therapy - Surgical History Surgical History: Yes Surgery Procedure, Year, and Place: Appendectomy 11/25, choleycycectomy 2013 - Family History Known Family History: Positive: Cardiac Disease - grandfather, Other - grandma breast CA Negative: Hypertension, Diabetes - Social History Occupation: Employed Full-time Lives: With Family Alcohol Use: Occasionally Substance Use Type: None Smoking Status (MU): Never Smoked Tobacco Type: Cigarettes Amount Used/How Often: 1 pack q 3 days Length of Time of Smoking/Using Tobacco: 2 YEARS Have You Smoked in the Last Year: Yes Household Exposure Type: Cigarettes - Immunization History Most Recent Influenza Vaccination: current Most Recent Tetanus Shot: 07/31/15 Most Recent Pneumonia Vaccination: not indicated Review of Systems All Other Systems Reviewed And Are Negative: Yes Constitutional: Positive: Fever, Fatigue Skin: Positive: Negative Eyes: Positive: Negative ENT: Positive: Negative Respiratory: Positive: Negative Cardiovascular: Positive: Palpitations Gastrointestinal: Positive: Negative Motor: Positive: Negative Neurovascular: Positive: Negative Musculoskeletal: Positive: Myalgia Neurological: Positive: Negative Psychological: Positive: Negative Is Patient Immunocompromised?: No Physical Exam - Summary Physical Exam Summary: Vital Signs Reviewed: Yes A+Ox3, no distress, tired appearing Eyes: Conjunctiva Clear, [place]. 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 pt reports myalgia. no rash, travel On exam VS incresaed temp, tachycardia pt without folcal findings on exam - d/w pt transfer to ED for further eval or send out lab with strict return precautions pt strong preference to draw abs here pt is not toxic appearing - suspect viral will draw labs, urine and recomend to ED if sx progress pt comfotable and in agreement with plan work note - Diagnoses Provider Diagnosis: Fever, Myalgia Discharge ED - Sign-Out/Discharge Documenting (check all that apply): Patient Departure All imaging exams completed and their final reports reviewed: No Studies - Discharge Plan Condition: Stable Disposition: HOME Patient Education Materials: Fever in Adults (ED), Musculoskeletal Pain (ED) Forms: *Work Release Referrals: Jus Wright MD [Primary Care Provider] - Additional Instructions: - stay well hydrated. Drink plenty of non-alcoholic, non-caffinated beverages - eat and drink plenty of non-caffinated, non-alcohol beverages - get plenty of restful sleep - as discussed, you had bloodwork taken this evening - if there is any concerning findings on your bloodwork you will receive a call from a care cleaning team member. - If you develop uncontrolled fever, pain, vomiting, rash or any other concerns it is recomended you go to the emergency department for further evaluation and treatment - Billing Disposition and Condition Condition: STABLE Disposition: Home
[2019-03-10 12:02] LABS: ABS Lymphocytes 0.3 10^3/ul (1.0-4.8); ABS Monocytes 0.5 10^3/ul (0-0.8); ABS Neutrophils 5.3 10^3/ul (1.5-7.7); Hematocrit 40 % (35-47); Hemoglobin 13.5 g/dL (12.0-16.0); Lymphocyte % 5.4 %; Mean Corpuscular HGB Conc 34 g/dL (31-36); Mean Corpuscular Hemoglobin 31 pg (27-31); Mean Corpuscular Volume 90 fL (80-97); Mean Platelet Volume 8.6 fL (7.4-10.4); Platelet Count 241 10^3/uL (150-450); Red Blood Count 4.44 10^6 /uL (3.70-4.87); Red Cell Distribution Width 14 % (10-15); White Blood Count 6.1 10^3/uL (3.5-10.8)
[2019-03-10 12:09] LABS: Albumin 4.6 g/dL (3.2-5.2); Calcium 9.7 mg/dL (8.6-10.3); Magnesium 1.9 mg/dL (1.9-2.7); Total Bilirubin 0.3 mg/dL (0.2-1.0)
[2019-03-10 12:15] LABS: Albumin/Globulin Ratio 1.8 (1-3); EGFR African American 114.9 (>60); EGFR Non-African American 94.9 (>60); Globulin 2.5 g/dL (2-4); Total Protein 7.1 g/dL (6.4-8.9)
== END 2019-03-09 22:10 | disposition home or self-care (01) ==
LOC: UCEAST 20:16
DX: M79.10 Myalgia, unspecified site (principal); Z87.891 Personal history of nicotine dependence
CPT/HCPCS: 36415; 80053; 81003; 83735; 84702; 85025; 86618; 99212; A9270-GY; G0463

== ENCOUNTER 2019-03-14 12:26 | Emergency (ER) | payer BC ==
[2019-03-14 13:33] LABS: ABS Eosinophils 0.1 10^3/ul (0-0.6); ABS Lymphocytes 1.6 10^3/ul (1.0-4.8); ABS Monocytes 0.7 10^3/ul (0-0.8); ABS Neutrophils 3.9 10^3/ul (1.5-7.7); Eosinophil % 0.9 %; Hematocrit 39 % (35-47); Hemoglobin 13.3 g/dL (12.0-16.0); INR 0.95 (0.82-1.09); Mean Corpuscular HGB Conc 34 g/dL (31-36); Mean Corpuscular Hemoglobin 30 pg (27-31); Mean Corpuscular Volume 88 fL (80-97); Nucleated Red Blood Cells % 0.1; Platelet Count 237 10^3/uL (150-450); Red Blood Count 4.44 10^6 /uL (3.70-4.87); Red Cell Distribution Width 14 % (10-15); White Blood Count 6.3 10^3/uL (3.5-10.8)
[2019-03-14 13:51] LABS: Troponin I 0.01 ng/mL (<0.04)
[2019-03-14 13:59] LABS: Albumin 4.5 g/dL (3.2-5.2); Albumin/Globulin Ratio 1.6 (1-3); BUN/Creatinine Ratio 12.1 (8-20); Calcium 9.5 mg/dL (8.6-10.3); EGFR African American 133.1 (>60); Globulin 2.9 g/dL (2-4); Potassium 4.3 mmol/L (3.5-5.0); Total Bilirubin 0.3 mg/dL (0.2-1.0); Total Protein 7.4 g/dL (6.4-8.9)
[2019-03-14] MEDS ORDERED: Naproxen TAB* 250 MG PO ONE (14:13)
[2019-03-14 14:28] LABS: Urine Appearance Clear; Urine Bilirubin Negative (Negative); Urine Blood Negative (Negative); Urine Color Yellow; Urine Glucose Negative (Negative); Urine Ketones Trace (Negative); Urine Nitrite Negative (Negative); Urine Protein Negative (Negative); Urine Specific Gravity 1.011 (1.010-1.030); Urine Urobilinogen Negative (Negative)
[2019-03-14 15:14] VITALS: BP 108/64
--- NOTE | 2019-03-14 16:46 | ED ---
HPI Cardiac - HPI Summary HPI Summary: This patient is a 24-year-old female who presents to the ED with chest wall tightness. Patient states she had a fever a few days ago with some bilateral joint pains which has since resolved. She was seen at urgent care who advised her to come to the ED if she develops any "chest pain." She denies history of cardiopulmonary disease. Takes no medications and is otherwise healthy. Symptoms began this morning she describes as a "vise around my rib cage." She states symptoms are worse with movement and better with rest. At rest, pain is currently rated a 0/10, upon rotation of the hips and movement as well as coughing and deep breaths, pain is rated a 7/10. She has been denying any fevers, sweats, chills recently in the past 2-3 days. She continues to eat and drink okay. No history of discomfort to this area in the past. No abdominal pain. No back pain or UTI symptoms. Denies family history of cardiac events. Denies any personal history of cardiac events. No recent travel, no calf pain, denies smoking history and denies OCP use. - History of Current Complaint Chief Complaint: EDChestWallPain Stated Complaint: CHEST PAIN/ACHY BODY PER PT Time Seen by Provider: 03/14/19 14:03 Hx Obtained From: Patient Hx Last Menstrual Period: unsure Onset/Duration: Started Hours Ago Timing: Constant Initial Severity: Moderate Current Severity: Moderate Pain Intensity: 2 Pain Scale Used: 0-10 Numeric Aggravating Factor(s): Nothing Alleviating Factor(s): Nothing Associated Signs and Symptoms: Positive: Negative, Other: - chest wall pain - Risk Factors Pulmonary Embolism Risk Factors: Negative Cardiac Risk Factors: Negative Atrial Fibrillation Risk Factors: Negative TAD Risk Factors: Negative - Allergy/Home Medications Allergies/Adverse Reactions: Allergies Allergy/AdvReac Type Severity Reaction Status Date / Time ketorolac [From Toradol] Allergy Intermediate Hives Verified 03/14/19 12:37 Home Medications: Home Medications Norgestimate-Ethinyl Estradiol [Tri-Linyah Tablet] 1 each PO DAILY 03/14/19 [ History Confirmed 03/14/19] PMH/Surg Hx/FS Hx/Imm Hx Previously Healthy: Yes Endocrine/Hematology History: Denies: Hx Anticoagulant Therapy, Hx Diabetes, Hx Thyroid Disease Cardiovascular History: Denies: Hx Congestive Heart Failure, Hx Deep Vein Thrombosis, Hx Hypertension , Hx Myocardial Infarction, Hx Pacemaker/ICD Respiratory History: Reports: Hx Asthma Denies: Hx Chronic Obstructive Pulmonary Disease (COPD), Hx Lung Cancer, Hx Pneumonia, Hx Pulmonary Embolism GI History: Reports: Hx Gall Bladder Disease - s/p cholecystectomy Denies: Hx Cirrhosis, Hx Crohn's Disease, Hx Diverticulosis, Hx Gastrointestinal Bleed, Hx Irritable Bowel, Hx Obstructive Bowel, Hx Ulcer, Hx Urosepsis History: Reports: Other Problems/Disorders - PCOS Denies: Hx Kidney Stones, Hx Renal Disease Neurological History: Denies: Hx Dementia, Hx Migraine, Hx Seizures, Hx Transient Ischemic Attacks (TIA) Psychiatric History: Denies: Hx Anxiety, Hx Depression, Hx Schizophrenia, Hx Bipolar Disorder - Cancer History Cancer Type, Location and Year: none - Surgical History Surgery Procedure, Year, and Place: Appendectomy 11/25, choleycycectomy 2013 - Immunization History Hx Pertussis Vaccination: No Immunizations Up to Date: Yes Infectious Disease History: No Infectious Disease History: Denies: Hx Clostridium Difficile, Hx Hepatitis, Hx Human Immunodeficiency Virus (HIV), Hx of Known/Suspected MRSA, Hx Shingles, Hx Tuberculosis, Hx Known/ Suspected VRE, Hx Known/Suspected VRSA, History Other Infectious Disease, Traveled Outside the [place] in Last 30 Days - Family History Known Family History: Positive: Cardiac Disease - grandfather, Other - grandma breast [place] Negative: Hypertension, Diabetes - Social History Occupation: Employed Full-time Lives: With Family Alcohol Use: Occasionally Hx Substance Use: Yes Substance Use Type: Reports: None Hx Tobacco Use: Yes Smoking Status (MU): Never Smoked Tobacco Type: Cigarettes Amount Used/How Often: 1 pack q 3 days Length of Time of Smoking/Using Tobacco: 2 YEARS Have You Smoked in the Last Year: Yes Review of Systems Negative: Fever, Chills, Fatigue, Skin Diaphoresis Positive: Chest Pain. Negative: Palpitations Negative: Shortness Of Breath, Cough Genitourinary: Negative Positive: no symptoms reported, see HPI Negative: Arthralgia, Myalgia Neurological: Negative All Other Systems Reviewed And Are Negative: Yes Physical Exam Triage Information Reviewed: Yes Vital Signs On Initial Exam: Initial Vitals Temp Pulse Resp BP Pulse Ox 98.5 F 76 16 129/80 100 03/14/19 12:35 03/14/19 12:35 03/14/19 12:35 03/14/19 12:35 03/14/19 12:35 Vital Signs Reviewed: Yes Appearance: Positive: Well-Appearing, Well-Nourished Skin: Positive: Warm, Skin Color Reflects Adequate Perfusion Head/Face: Positive: Normal Head/Face Inspection Eyes: Positive: Normal, [place], Conjunctiva Clear Neck: Positive: Supple, No Lymphadenopathy Respiratory/Lung Sounds: Positive: Clear to Auscultation, Breath Sounds Present Cardiovascular: Positive: RRR, Pulses are Symmetrical in both Upper and Lower Extremities Musculoskeletal: Positive: Pain @ - chest wall and ribs as well as scapular region Neurological: Positive: Sensory/Motor Intact, Alert, Oriented to Person Place, Time Psychiatric: Positive: Affect/Mood Appropriate AVPU Assessment: Alert Diagnostics - Vital Signs Vital Signs Temp Pulse Resp BP Pulse Ox 03/14/19 15:30 98.5 F 65 18 108/64 100 03/14/19 15:11 63 22 108/64 98 03/14/19 15:00 63 23 98 03/14/19 14:41 57 25 117/66 98 03/14/19 14:12 67 108/73 98 03/14/19 14:11 64 99 03/14/19 12:35 98.5 F 76 16 129/80 100 - Laboratory Lab Results: Lab Results 03/14/19 03/14/19 03/14/19 Range/Units 12:57 12:57 12:57 WBC 6.3 (3.5-10.8) 10^3/uL RBC 4.44 (3.70-4.87) 10^6 /uL Hgb 13.3 (12.0-16.0) g/dL Hct 39 (35-47) % MCV 88 (80-97) fL MCH 30 (27-31) pg MCHC 34 (31-36) g/dL RDW 14 (10-15) % Plt Count 237 (150-450) 10^3/uL MPV 8.0 (7.4-10.4) fL Neut % (Auto) 62.1 % Lymph % (Auto) 26.0 % [place] % (Auto) 10.7 % Eos % (Auto) 0.9 % Baso % (Auto) 0.3 % Absolute Neuts (auto) 3.9 (1.5-7.7) 10^3/ul Absolute Lymphs (auto) 1.6 (1.0-4.8) 10^3/ul Absolute Monos (auto) 0.7 (0-0.8) 10^3/ul Absolute Eos (auto) 0.1 (0-0.6) 10^3/ul Absolute Basos (auto) 0.0 (0-0.2) 10^3/ul Absolute Nucleated RBC 0.0 10^3/ul Nucleated RBC % 0.1 INR (Anticoag Therapy) 0.95 (0.82-1.09) Sodium 139 (135-145) mmol/L Potassium 4.3 (3.5-5.0) mmol/L Chloride 106 (101-111) mmol/L Carbon Dioxide 27 (22-32) mmol/L Anion Gap 6 (2-11) mmol/L BUN 8 (6-24) mg/dL Creatinine 0.66 (0.51-0.95) mg/dL Est GFR ( Amer) 133.1 (>60) Est GFR (Non-Af Amer) 110.0 (>60) BUN/Creatinine Ratio 12.1 (8-20) Glucose 90 (70-100) mg/dL Calcium 9.5 (8.6-10.3) mg/dL Total Bilirubin 0.30 (0.2-1.0) mg/dL AST 20 (13-39) U/L ALT 22 (7-52) U/L Alkaline Phosphatase 68 (34-104) U/L Troponin I 0.01 (<0.04) ng/mL Total Protein 7.4 (6.4-8.9) g/dL Albumin 4.5 (3.2-5.2) g/dL Globulin 2.9 (2-4) g/dL Albumin/Globulin Ratio 1.6 (1-3) Urine Color Urine Appearance Urine pH (5-9) Ur Specific [place] (1.010-1.030) Urine Protein (Negative) Urine Ketones (Negative) Urine Blood (Negative) Urine Nitrate (Negative) Urine Bilirubin (Negative) Urine Urobilinogen (Negative) Ur Leukocyte Esterase (Negative) Urine Glucose (Negative) 03/14/19 Range/Units 14:12 WBC (3.5-10.8) 10^3/uL RBC (3.70-4.87) 10^6 /uL Hgb (12.0-16.0) g/dL Hct (35-47) % MCV (80-97) fL MCH (27-31) pg MCHC (31-36) g/dL RDW (10-15) % Plt Count (150-450) 10^3/uL MPV (7.4-10.4) fL Neut % (Auto) % Lymph % (Auto) % [place] % (Auto) % Eos % (Auto) % Baso % (Auto) % Absolute Neuts (auto) (1.5-7.7) 10^3/ul Absolute Lymphs (auto) (1.0-4.8) 10^3/ul Absolute Monos (auto) (0-0.8) 10^3/ul Absolute Eos (auto) (0-0.6) 10^3/ul Absolute Basos (auto) (0-0.2) 10^3/ul Absolute Nucleated RBC 10^3/ul Nucleated RBC % INR (Anticoag Therapy) (0.82-1.09) Sodium (135-145) mmol/L Potassium (3.5-5.0) mmol/L Chloride (101-111) mmol/L Carbon Dioxide (22-32) mmol/L Anion Gap (2-11) mmol/L BUN (6-24) mg/dL Creatinine (0.51-0.95) mg/dL Est GFR ( Amer) (>60) Est GFR (Non-Af Amer) (>60) BUN/Creatinine Ratio (8-20) Glucose (70-100) mg/dL Calcium (8.6-10.3) mg/dL Total Bilirubin (0.2-1.0) mg/dL AST (13-39) U/L ALT (7-52) U/L Alkaline Phosphatase (34-104) U/L Troponin I (<0.04) ng/mL Total Protein (6.4-8.9) g/dL Albumin (3.2-5.2) g/dL Globulin (2-4) g/dL Albumin/Globulin Ratio (1-3) Urine Color Yellow Urine Appearance Clear Urine pH 7.0 (5-9) Ur Specific [place] 1.011 (1.010-1.030) Urine Protein Negative (Negative) Urine Ketones Trace A (Negative) Urine Blood Negative (Negative) Urine Nitrate Negative (Negative) Urine Bilirubin Negative (Negative) Urine Urobilinogen Negative (Negative) Ur Leukocyte Esterase Negative (Negative) Urine Glucose Negative (Negative) Result Diagrams: 03/14/19 12:57 03/14/19 12:57 Lab Statement: Any lab studies that have been ordered have been reviewed, and results considered in the medical decision making process. Disposition - Course Course Of Treatment: On arrival into the ED, the vital signs are stable with 98.5, 76, respirations 16, 100% on room air and 129/80. Patient endorses worsening pain with rotation and movement, deep breaths and cough. Currently denying any fevers, sweats, chills. A chest x-ray was obtained which has no acute cardio pulmonary disease. Labs obtained are unremarkable. On physical examination, patient appears well, nondiaphoretic and nontoxic appearing. Patient is breathing well and appears to be in no acute distress. Physical examination, she has tenderness to the bilateral rib cage, scapular region and chest wall on palpation. At rest, patient is denying any discomfort. This is likely musculoskeletal due to the tenderness she has on movement and palpation. This was discussed with the patient. She was given a naproxen while in the ED. She states she continues to have symptoms, however denies any difficulty with breathing, abdominal pain or other symptoms. PERC score = 0. Very low risk. She will be discharged in good condition with chest wall discomfort and is encouraged naproxen, heat to the area. - Differential Dx - Cardiopulmonary Differential Diagnoses - Cardiopulmonary: Chest Wall Pain, Other - chest wall pain, costochondritis, inflammation, viral illness - Diagnoses Provider Diagnoses: Chest wall pain Discharge ED - Sign-Out/Discharge Documenting (check all that apply): Patient Departure Patient Received Moderate/Deep Sedation with Procedure: No - Discharge Plan Condition: Stable Disposition: HOME Prescriptions: Naproxen TAB* [Naprosyn 250 mg TAB*] 500 mg PO Q12H PRN #12 tab MDD 2 PRN Reason: Pain - Mild Forms: *Work Release Referrals: Jus Wright MD [Primary Care Provider] - Additional Instructions: Naproxen twice daily as needed for pain, 2 tabs (500 mg) Moist heat to the area, hot tubs, hot baths may help Gentle stretches - Billing Disposition and Condition Condition: STABLE Disposition: Home
== END 2019-03-14 15:25 | disposition home or self-care (01) ==
LOC: ED 12:26
DX: R07.89 Other chest pain (principal); Z88.5 Allergy status to narcotic agent
CPT/HCPCS: 36415; 71046; 80053; 81003; 84484; 85025; 85610; 93005; 99282; A9270-GY

== ENCOUNTER 2019-05-03 07:48 | Emergency (ER) | payer BC ==
[2019-05-03 08:01] VITALS: BP 116/75
--- NOTE | 2019-05-03 09:13 | UC ---
Eye Complaint HPI - HPI Summary HPI Summary: 24 yo with asthma, awoke today with purulent right eye drainage and itching. No recent respiratory illness. Unaware of any particular infectious contact. 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 3 yo daughter in day care but has no symptoms. - History of Current Complaint Chief Complaint: UCEye Stated Complaint: EYE ISSUE Time Seen by Provider: 05/03/19 09:07 Hx Obtained From: Patient Hx Last Menstrual Period: 04/25/19 Onset/Duration: Sudden Onset, Lasting Hours Timing: Constant Severity Initially: Mild Severity Currently: Mild Pain Intensity: 0 Location of Injury: Conjunctiva Aggravating Factor(s): Nothing Alleviating Factor(s): Nothing Associated Signs And Symptoms: Positive: Drainage (Purulent) - Allergies/Home Medications Allergies/Adverse Reactions: Allergies Allergy/AdvReac Type Severity Reaction Status Date / Time ketorolac [From Toradol] Allergy Intermediate Hives Verified 05/03/19 07:55 PMH/Surg Hx/FS Hx/Imm Hx Previously Healthy: Yes Respiratory History: Asthma - well controlled Other History Of: Negative For: HIV, Hepatitis B, Hepatitis C, Anticoagulant Therapy - Surgical History Surgical History: Yes Surgery Procedure, Year, and Place: Appendectomy 11/25, choleycycectomy 2013 - Family History Known Family History: Positive: Cardiac Disease - grandfather, Other - grandma breast [place] Negative: Hypertension, Diabetes - Social History Occupation: Employed Full-time Lives: With Family Alcohol Use: Occasionally Substance Use Type: None Smoking Status (MU): Former Smoker Type: Cigarettes Amount Used/How Often: 1 pack q 3 days Length of Time of Smoking/Using Tobacco: 2 YEARS Have You Smoked in the Last Year: Yes When Did the Patient Quit Smoking/Using Tobacco: 2018 Household Exposure Type: Cigarettes - Immunization History Most Recent Influenza Vaccination: current Most Recent Tetanus Shot: 07/31/15 Most Recent Pneumonia Vaccination: not indicated Review of Systems All Other Systems Reviewed And Are Negative: Yes Constitutional: Positive: Negative Skin: Positive: Negative Eyes: Positive: Blurred Vision, Drainage, Eye Redness ENT: Positive: Negative Respiratory: Positive: Negative, Other - asthma controlled. Cardiovascular: Positive: Negative Gastrointestinal: Positive: Negative Genitourinary: Positive: Negative Motor: Positive: Negative Neurovascular: Positive: Negative Musculoskeletal: Positive: Negative Neurological: Positive: Negative Psychological: Positive: Negative Is Patient Immunocompromised?: No Physical Exam Triage Information Reviewed: Yes Appearance: Well-Appearing, No Pain Distress Vital Signs: Initial Vital Signs Temp 99.6 F 05/03/19 07:56 Pulse 79 05/03/19 07:56 Resp 20 05/03/19 07:56 BP 116/75 05/03/19 07:56 Pulse Ox 100 05/03/19 07:56 Eye Exam: Other - TA, no photophobia, no lid swelling. Eyes: Positive: Conjunctiva Inflamed, Discharge - moderate purulent eye discharge. ENT: Positive: Pharynx normal, TMs normal Dental Exam: Normal Neck: Positive: Supple, Nontender Respiratory: Positive: Lungs clear, Normal breath sounds Cardiovascular: Positive: RRR, No Murmur Musculoskeletal Exam: Normal Neurological Exam: Normal Psychological Exam: Normal Skin Exam: Normal Eye Complaint Course/Dx - Course Course Of Treatment: eye drops to treat acute conjunctivitis, off work today. - Differential Dx/Diagnosis Provider Diagnosis: Conjunctivitis Discharge ED - Sign-Out/Discharge Documenting (check all that apply): Patient Departure All imaging exams completed and their final reports reviewed: No Studies - Discharge Plan Condition: Good Disposition: HOME Prescriptions: Polymyx/Trimethoprim OPTH* [Polytrim OPHTH*] 2 drop BOTH EYES Q3H #1 btl Patient Education Materials: Conjunctivitis (ED) Forms: *Work Release Referrals: Jus Wright MD [Primary Care Provider] - Additional Instructions: Use drops to both eyes at least 4 times daily for 5 days, but today use the drops every 1 to 2 hours in the right eye. Off work today. Use cool compresses to the eye for relief of itching, and ensure lots of hand washing to prevent spread of infection. - Billing Disposition and Condition Condition: GOOD Disposition: Home
== END 2019-05-03 09:26 | disposition home or self-care (01) ==
LOC: UCEAST 07:48
DX: H10.31 Unspecified acute conjunctivitis, right eye (principal); J45.909 Unspecified asthma, uncomplicated; Z87.891 Personal history of nicotine dependence; Z88.6 Allergy status to analgesic agent
CPT/HCPCS: 99212; G0463

== ENCOUNTER 2019-06-25 09:57 | Emergency (ER) | payer BC ==
[2019-06-25 10:04] VITALS: BP 112/74
--- NOTE | 2019-06-25 10:20 | UC ---
Complaint Female HPI - HPI Summary HPI Summary: vaginal discharge x 3 days + irritation and itchy , no burning no dysuria, no fever, no chills, + odor cw with BV no hx of STD , no new partners - History Of Current Complaint Chief Complaint: UCGU Stated Complaint: PERSONAL Time Seen by Provider: 06/25/19 10:08 Hx Obtained From: Patient Hx Last Menstrual Period: 05/29/19 ?: No Onset/Duration: Gradual Onset, Lasting Days - 3, Still Present Timing: Constant Severity Initially: Moderate Severity Currently: Moderate Pain Intensity: 1 Character: Not Applicable Aggravating Factor(s): Nothing Alleviating Factor(s): Nothing Associated Signs And Symptoms: Positive: Vaginal Discharge. Negative: Fever, Back Pain, Vaginal Bleeding/Discharge, Nausea, Vomiting(# Of Episodes =), Genital Swelling, Genital Blisters, Retained Foregin Body (Specify) - Allergies/Home Medications Allergies/Adverse Reactions: Allergies Allergy/AdvReac Type Severity Reaction Status Date / Time ketorolac [From Toradol] Allergy Intermediate Hives Verified 06/25/19 10:00 PMH/Surg Hx/FS Hx/Imm Hx Respiratory History: Asthma Other History Of: Negative For: HIV, Hepatitis B, Hepatitis C, Anticoagulant Therapy - Surgical History Surgical History: Yes Surgery Procedure, Year, and Place: Appendectomy 11/25, choleycycectomy 2013 - Family History Known Family History: Positive: Cardiac Disease - grandfather, Other - grandma breast [place] Negative: Hypertension, Diabetes - Social History Alcohol Use: Occasionally Substance Use Type: Marijuana Substance Use Comment - Amount & Last Used: occasional Smoking Status (MU): Former Smoker Type: Cigarettes Amount Used/How Often: 1 pack q 3 days Length of Time of Smoking/Using Tobacco: 2 YEARS Have You Smoked in the Last Year: Yes When Did the Patient Quit Smoking/Using Tobacco: 2018 Household Exposure Type: Cigarettes - Immunization History Most Recent Influenza Vaccination: current Most Recent Tetanus Shot: 07/31/15 Most Recent Pneumonia Vaccination: not indicated Review of Systems All Other Systems Reviewed And Are Negative: Yes Constitutional: Positive: Negative Skin: Positive: Negative Eyes: Positive: Negative Is Patient Immunocompromised?: No Physical Exam Triage Information Reviewed: Yes Appearance: Well-Appearing, No Pain Distress, Well-Nourished Vital Signs: Initial Vital Signs Temp 97.8 F 06/25/19 10:01 Pulse 84 06/25/19 10:01 Resp 18 06/25/19 10:01 BP 112/74 06/25/19 10:01 Pulse Ox 100 06/25/19 10:01 Vital Signs Reviewed: Yes Eye Exam: Normal Eyes: Positive: Conjunctiva Clear ENT: Positive: Normal ENT inspection, Hearing grossly normal, Pharynx normal Neck: Positive: Supple, Nontender, No Lymphadenopathy Respiratory: Positive: Chest non-tender, Lungs clear, Normal breath sounds Cardiovascular: Positive: RRR, No Murmur, Pulses Normal Abdominal Exam: Normal Abdomen Description: Positive: Nontender, Soft. Negative: Distended, Guarding Bowel Sounds: Positive: Present Pelvic Exam: Positive: Other - deffered Complaint Female Dx - Differential Dx/Diagnosis Provider Diagnosis: Vaginitis Discharge ED - Sign-Out/Discharge Documenting (check all that apply): Patient Departure All imaging exams completed and their final reports reviewed: No Studies - Discharge Plan Condition: Stable Disposition: HOME Prescriptions: metroNIDAZOLE [Flagyl] 500 mg PO BID #14 tablet Patient Education Materials: Bacterial Vaginosis (ED) Referrals: Jus Wright MD [Primary Care Provider] - If Needed - Billing Disposition and Condition Condition: STABLE Disposition: Home
== END 2019-06-25 10:20 | disposition home or self-care (01) ==
LOC: UCEAST 09:57
DX: N76.0 Acute vaginitis (principal); Z88.6 Allergy status to analgesic agent; J45.909 Unspecified asthma, uncomplicated; Z87.891 Personal history of nicotine dependence
CPT/HCPCS: 99212; G0463

== ENCOUNTER 2019-06-29 08:13 | Emergency (ER) | payer BC ==
[2019-06-29] MEDS ORDERED: oxyCODONE/Acetamin 5/325 MG* TAB PO ONE (08:43)
--- NOTE | 2019-06-29 08:50 | ED ---
Abdominal Pain/Female - HPI Summary HPI Summary: The patient is a 24 y/o female presenting to [facility] with a chief complaint of RLQ pain onset over the last 4-5 days with gradual worsening. She reports that she had gone to [facility] on 06/25/2019 with concern for a yeast infection, but she was diagnosed with bacterial vaginosis and was placed on Flagyl. Since then, she has been experiencing RLQ pain, pressure with urination, and intermittent vaginal bleeding. Last night and into this morning she developed chills, nausea , and vomiting. She denies any abnormal discharge or subjective fever. There is no pain on the left side of the abdomen. Her pain is rated 6/10 in severity. She notes aggravation of the pain with palpation. She does not have a history of STDs, but she has a history of kidney stones and some ovarian issues which felt differently than the current episode. PMHx: cholecystectomy, appendectomy , PCOS. Former smoker, occasional EtOH, marijuana use. Medications reviewed. Allergies noted. - History of Current Complaint Chief Complaint: EDAbdPain Stated Complaint: OVARY PAIN PER PT Time Seen by Provider: 06/29/19 08:37 Hx Obtained From: Patient Hx Last Menstrual Period: 05/29/19 Onset/Duration: Gradual Onset, Still Present Timing: Constant Severity Initially: Mild Severity Currently: Moderate Pain Intensity: 6 Pain Scale Used: 0-10 Numeric Location: Discrete At: RLQ Radiates: No Character: Sharp Aggravating Factor(s): Other: - palpation Alleviating Factor(s): Nothing Associated Signs and Symptoms: Positive: Urinary Symptoms - pressure with urination, Vaginal Bleeding - intermittent, Nausea, Vomiting, Other: - chills. Negative: Fever, Vaginal Discharge Allergies/Adverse Reactions: Allergies Allergy/AdvReac Type Severity Reaction Status Date / Time ketorolac [From Toradol] Allergy Intermediate Hives Verified 06/29/19 08:18 Home Medications: Home Medications Multivitamins/Minerals TAB* [Theragran/minerals TAB*] 1 tab PO DAILY 06/29/19 [ History Confirmed 06/29/19] PMH/Surg Hx/FS Hx/Imm Hx Endocrine/Hematology History: Denies: Hx Anticoagulant Therapy, Hx Diabetes, Hx Thyroid Disease Cardiovascular History: Denies: Hx Congestive Heart Failure, Hx Deep Vein Thrombosis, Hx Hypertension , Hx Myocardial Infarction, Hx Pacemaker/ICD Respiratory History: Reports: Hx Asthma Denies: Hx Chronic Obstructive Pulmonary Disease (COPD), Hx Lung Cancer, Hx Pneumonia, Hx Pulmonary Embolism GI History: Reports: Hx Gall Bladder Disease - s/p cholecystectomy Denies: Hx Cirrhosis, Hx Crohn's Disease, Hx Diverticulosis, Hx Gastrointestinal Bleed, Hx Irritable Bowel, Hx Obstructive Bowel, Hx Ulcer, Hx Urosepsis History: Reports: Hx Kidney Stones, Other Problems/Disorders - PCOS Denies: Hx Renal Disease Neurological History: Denies: Hx Dementia, Hx Migraine, Hx Seizures, Hx Transient Ischemic Attacks (TIA) Psychiatric History: Denies: Hx Anxiety, Hx Depression, Hx Schizophrenia, Hx Bipolar Disorder - Cancer History Cancer Type, Location and Year: none - Surgical History Surgical History: Yes Surgery Procedure, Year, and Place: Appendectomy 11/25, choleycycectomy 2013 Infectious Disease History: No Infectious Disease History: Denies: Hx Clostridium Difficile, Hx Hepatitis, Hx Human Immunodeficiency Virus (HIV), Hx of Known/Suspected MRSA, Hx Shingles, Hx Tuberculosis, Hx Known/ Suspected VRE, Hx Known/Suspected VRSA, History Other Infectious Disease, Traveled Outside the [place] in Last 30 Days - Family History Known Family History: Positive: Cardiac Disease - grandfather, Other - grandma breast CA Negative: Hypertension, Diabetes - Social History Alcohol Use: Occasionally Hx Substance Use: Yes Substance Use Type: Reports: Marijuana Substance Use Comment - Amount & Last Used: occasional Hx Tobacco Use: Yes Smoking Status (MU): Former Smoker Type: Cigarettes Amount Used/How Often: 1 pack q 3 days Length of Time of Smoking/Using Tobacco: 2 YEARS Have You Smoked in the Last Year: Yes Review of Systems Positive: Chills. Negative: Fever Positive: Abdominal Pain - RLQ, Vomiting, Nausea Positive: other - intermittent vaginal bleeding, pressure with urination. Negative: discharge All Other Systems Reviewed And Are Negative: Yes Physical Exam - Summary Physical Exam Summary: Constitutional: Well-developed, Well-nourished, Alert. (-) Distressed Skin: Warm, Dry HENT: Normocephalic; Atraumatic Eyes: Conjunctiva normal Neck: Musculoskeletal ROM normal neck. (-) JVD, (-) Stridor, (-) Nuchal rigidity Cardio: Rhythm regular, rate normal, Heart sounds normal; Intact distal pulses; Radial pulses are 2+ and symmetric. (-) Murmur Pulmonary/Chest wall: Effort normal. (-) Respiratory distress, (-) Wheezes, (-) Rales Abd: Soft, (+) RLQ tenderness, (-) Distension, (-) Guarding, (-) Rebound : External Exam: normal labia, no masses, lacerations or abnormal lesions visualized Speculum Exam: Cervical os closed, no signs of inflammation, scant discharge, no blood in vault Bimanual Exam: no CMT, R adnexal tenderness Musculoskeletal: (-) Edema, Mild right flank tendernessy Neuro: Alert, Oriented x3 Psych: Mood and affect Normal Triage Information Reviewed: Yes Vital Signs On Initial Exam: Initial Vitals Temp Pulse Resp BP Pulse Ox 97.8 F 89 16 132/80 99 06/29/19 08:14 06/29/19 08:14 06/29/19 08:14 06/29/19 08:14 06/29/19 08:14 Vital Signs Reviewed: Yes Procedures - Sedation Patient Received Moderate/Deep Sedation with Procedure: No Diagnostics - Vital Signs Vital Signs Temp Pulse Resp BP Pulse Ox 06/29/19 08:14 97.8 F 89 16 132/80 99 - Laboratory Result Diagrams: 06/29/19 08:46 06/29/19 08:46 Lab Statement: Any lab studies that have been ordered have been reviewed, and results considered in the medical decision making process. - Ultrasound Transvaginal US Ultrasound Interpretation Completed By: Radiologist Summary of Ultrasound Findings: Impression: 1. Complicated right ovarian cyst suggestive of a hemorrhagic cyst measuring up to 3.7 cm. Recommend follow-up imaging in 6 weeks-12 weeks to document resolution. 2. Again noted is prominence of the pelvic vasculature. While nonspecific, this can be. Associated with pelvic congestion syndrome in the correct clinical setting. 3. No sonographic features of torsion. Please note that partial or intermittent torsion may be sonographically normal. Ed physician has reviewed this report. Re-Evaluation - Re-Evaluation First Eval Re-Evaluation Time: 11:20 Comment: We discussed results and plan for discharge. Abdominal Pain Fem Course/Dx - Course Course Of Treatment: 24 y/o F p/w RLQ pain. - ddx includes appendicitis, ovarian cyst, ovarian torsion, renal calculi. - Pelvic exam with right adnexal tenderness, no CMT. No discharge. Lower suspicion for PID versus TOA. GC and Chlamydia sent. - pelvic US shows complex R adnexal cyst, likely hemorrhagic. - plan for OB f/u for repeat US. Advised to return for fevers, worsening pain. - Diagnoses Provider Diagnoses: Hemorrhagic ovarian cyst Discharge ED - Sign-Out/Discharge Documenting (check all that apply): Patient Departure - Patient will be discharged home. - Discharge Plan Condition: Stable Disposition: HOME Prescriptions: Ibuprofen TAB* [Motrin TAB* 800 MG] 800 mg PO TID PRN 10 Days #30 tab PRN Reason: Pain - Moderate Patient Education Materials: Ovarian Cyst (ED) Referrals: Jus Wright MD [Primary Care Provider] - Ankit Bautista MD [Medical Doctor] - Additional Instructions: You were seen in the emergency department for lower quadrant pain. Your ultrasound showed a hemorrhagic cyst, please follow up with OBGYN for a repeat ultrasound. If any studies were not completed at the time of discharge you will be called with the relevant results. Please follow up with your primary care doctor in the next 2-3 days and return to the emergency department for worsening pain, fevers, or concerning symptoms. It was a pleasure taking care of you today. - Billing Disposition and Condition Condition: STABLE Disposition: Home - Attestation Statements Document Initiated by Ирина: Yes Documenting Lizibe: Lorelei Stewart Provider For Whom Ирина is Documenting (Include Credential): Dr. John Molina MD Scribe Attestation: Lorelei Watters, scribed for Dr. John Molina MD on 06/29/19 at 1151. Scribe Documentation Reviewed: Yes Provider Attestation: The documentation as recorded by the Lorelei cruz accurately reflects the service I personally performed and the decisions made by me, Dr. John Molina MD Status of Scriblove Document: Viewed
[2019-06-29] MEDS ORDERED: Ondansetron ODT TAB* 4 MG PO ONE (08:51)
[2019-06-29 08:59] LABS: ABS Eosinophils 0.1 10^3/ul (0-0.6); ABS Lymphocytes 1.3 10^3/ul (1.0-4.8); ABS Monocytes 0.6 10^3/ul (0-0.8); ABS Neutrophils 7.7 10^3/ul (1.5-7.7); Eosinophil % 1.1 %; Hematocrit 38 % (35-47); Hemoglobin 13.2 g/dL (12.0-16.0); Lymphocyte % 13.2 %; Mean Corpuscular HGB Conc 35 g/dL (31-36); Mean Corpuscular Hemoglobin 31 pg (27-31); Mean Corpuscular Volume 89 fL (80-97); Mean Platelet Volume 7.9 fL (7.4-10.4); Platelet Count 307 10^3/uL (150-450); Red Blood Count 4.28 10^6 /uL (3.70-4.87); Red Cell Distribution Width 14 % (10-15); White Blood Count 9.6 10^3/uL (3.5-10.8)
[2019-06-29 09:14] LABS: ALT 11 U/L (7-52); AST 14 U/L (13-39); Albumin 4.3 g/dL (3.2-5.2); Albumin/Globulin Ratio 1.5 (1-3); Alkaline Phosphatase 63 U/L (34-104); Anion Gap 4 mmol/L (2-11); BUN/Creatinine Ratio 16.9 (8-20); Blood Urea Nitrogen 11 mg/dL (6-24); CO2 Carbon Dioxide 27 mmol/L (22-32); Calcium 9.3 mg/dL (8.6-10.3); Chloride 106 mmol/L (101-111); EGFR African American 135.5 (>60); Globulin 2.8 g/dL (2-4); Glucose 96 mg/dL (70-100); Potassium 4.2 mmol/L (3.5-5.0); Sodium 137 mmol/L (135-145); Total Protein 7.1 g/dL (6.4-8.9)
[2019-06-29 09:21] LABS: HCG Pregnancy < 0.60 mIU/mL
[2019-06-29 09:22] LABS: Urine Appearance Clear; Urine Bilirubin Negative (Negative); Urine Blood 1+ (Negative); Urine Color Yellow; Urine Glucose Negative (Negative); Urine Ketones Negative (Negative); Urine Nitrite Negative (Negative); Urine Protein Negative (Negative); Urine Specific Gravity 1.015 (1.010-1.030); Urine Urobilinogen Negative (Negative)
[2019-06-29 09:25] LABS: Urine Bacteria Absent (Absent); Urine Red Blood Cell Trace(0-2/hpf) (Absent); Urine Squamous Epithelial Cell Present (Absent); Urine White Blood Cell Trace(0-5/hpf) (Absent)
[2019-06-29] MEDS ORDERED: Ibuprofen TAB* 600 MG PO ONE (11:23)
[2019-06-29 11:34] VITALS: BP 108/93
[2019-06-29 13:52] LABS: Chlamydia trachomatis NAA Negative (Negative); Neisseria gonorrhoeae (GC) NAA Negative (Negative)
--- NOTE | 2019-07-01 05:59 | ED ---
Imaging and Labs Follow Up Follow Up Type: Labs/Cultures Labs/Culture Result: patient trich, g/c neg Patient Communication/Plan: no further action required Provider Diagnoses: Hemorrhagic ovarian cyst
== END 2019-06-29 11:34 | disposition home or self-care (01) ==
LOC: ED 08:13
DX: N83.201 Unspecified ovarian cyst, right side (principal); Z88.5 Allergy status to narcotic agent; J45.909 Unspecified asthma, uncomplicated; Z87.891 Personal history of nicotine dependence; Z90.49 Acquired absence of other specified parts of digestive tract; Z90.89 Acquired absence of other organs
CPT/HCPCS: 36415; 76830; 80053; 81003; 81015; 84702; 85025; 87086; 87491; 87591; 87661; 99283; A9270-GY

== ENCOUNTER 2021-07-04 09:52 | Inpatient (IN) ==
[2021-07-04] MEDS: Lactated Ringers 1000 ml BAG 1,000 ML IV SCH ×3 (09:09→16:56)
[2021-07-04 09:33] LABS: ABS Eosinophils 0.1 10^3/ul (0-0.6); ABS Lymphocytes 1.8 10^3/ul (1.0-4.8); ABS Monocytes 0.6 10^3/ul (0-0.8); Eosinophil % 1.2 %; Hematocrit 32 % (35-47); Hemoglobin 11.2 g/dL (12.0-16.0); Lymphocyte % 18.9 %; Mean Corpuscular HGB Conc 35 g/dL (31-36); Mean Corpuscular Hemoglobin 33 pg (27-31); Mean Corpuscular Volume 92 fL (80-97); Mean Platelet Volume 8.4 fL (7.4-10.4); Platelet Count 261 10^3/uL (150-450); Red Blood Count 3.44 10^6 /uL (3.70-4.87); Red Cell Distribution Width 13 % (10-15); White Blood Count 9.6 10^3/uL (3.5-10.8)
[2021-07-04 09:52] LABS: Urine Benzodiazepine Screen None Detected (None Detect); Urine Cannabinoids Screen Presumptive Positive (None Detect); Urine Opiates Screen None Detected (None Detect)
[~2021-07-04 09:52] MED LIST: Albuterol HFA INHALER 8 gm MDI INH PRN; Oxytocin in LR 20 UNITS/1,000 ML BAG IVPB SCH
[2021-07-04] MEDS: Calcium Carb (TUMS) 500 mg CHEW TAB PO PRN (13:45)
[2021-07-04] MEDS ORDERED: OBEPIDURAL 250 ML EPIDURAL ONE (14:32)
[2021-07-04] MEDS ORDERED: Lactated Ringers 1000 ml BAG 1,000 ML IV ONE (15:05)
[2021-07-04] MEDS ORDERED: Phenylephrine 40 mcg/mL 10mL (400mcg) SYRINGE IV PUSH PRN (15:05)
[2021-07-04] MEDS ORDERED: Sodium Citrate/Citric Acid LIQ 15 ML UDC PO PRN (15:05)
[2021-07-04] MEDS ORDERED: Lactated Ringers 1000 ml BAG 500 ML IV PRN (15:05)
[2021-07-04] MEDS ORDERED: EPHEDrine (Pressors) 50 MG/ML VIAL IV PUSH PRN (15:05)
[2021-07-04 15:52] LABS: Urine Appearance Clear; Urine Bilirubin Negative (Negative); Urine Blood Negative (Negative); Urine Color Colorless; Urine Glucose Negative (Negative); Urine Ketones Negative (Negative); Urine Nitrite Negative (Negative); Urine Protein Negative (Negative); Urine Specific Gravity 1.003 (1.002-1.030); Urine Urobilinogen Negative (Negative)
[2021-07-04] MEDS ORDERED: Lactated Ringers 1000 ml BAG 1,000 ML IV SCH ×2 (16:00→23:45)
[2021-07-04] MEDS ORDERED: OBEPIDURAL 250 ML EPIDURAL SCH (16:00)
[2021-07-04] MEDS ORDERED: Ondansetron 4 mg VIAL 2 MG/ML 2 ml VIAL IV ONE (17:05)
[2021-07-04] MEDS ORDERED: Witch Hazel PAD JAR TOPICAL PRN (23:33)
[2021-07-04] MEDS ORDERED: Dibucaine 1% OINT 28.35 GM TUBE PR PRN (23:33)
[2021-07-04] MEDS ORDERED: Oxytocin in LR 20 UNITS/1,000 ML BAG IVPB SCH (23:45)
[2021-07-05] MEDS: Mometasone/Formoter 200/5 MDI INH SCH ×3 (00:20→20:25)
[2021-07-05 06:51] LABS: ABS Basophils 0.1 10^3/ul (0-0.2); ABS Eosinophils 0.1 10^3/ul (0-0.6); ABS Monocytes 1.2 10^3/ul (0-0.8); ABS Neutrophils 19.8 10^3/ul (1.5-7.7); Eosinophil % 0.3 %; Hematocrit 31 % (35-47); Hemoglobin 10.9 g/dL (12.0-16.0); Lymphocyte % 8.5 %; Mean Corpuscular HGB Conc 35 g/dL (31-36); Mean Corpuscular Hemoglobin 32 pg (27-31); Mean Corpuscular Volume 92 fL (80-97); Mean Platelet Volume 8.4 fL (7.4-10.4); Platelet Count 251 10^3/uL (150-450); Red Blood Count 3.37 10^6 /uL (3.70-4.87); Red Cell Distribution Width 13 % (10-15); White Blood Count 23.2 10^3/uL (3.5-10.8)
[2021-07-05] MEDS: Calcium Carb (TUMS) 500 mg CHEW TAB PO PRN (10:33)
[2021-07-06 08:03] VITALS: BP 120/76
[2021-07-06] MEDS: Mometasone/Formoter 200/5 MDI INH SCH (08:08)
== END 2021-07-06 10:57 | disposition home or self-care (01) | DRG 560 ==
LOC: MCHOBOUT 09:52 → MCHOB 11:11
PROVIDERS: ADMIT Midwife; ATTEND Midwife